=== PATIENT | female | born 1970 | race American Indian/Alaskan Native ===

== ENCOUNTER 2016-09-13 09:34 | Inpatient (IN) | payer MEDICAID ==
[2016-09-13 09:36] VITALS: BMI 32.5
--- NOTE | 2016-09-13 10:35 | ED PDOC ---
Arrival/HPI - General Chief Complaint: Back Pain Time Seen by Provider: 09/13/16 09:58 Historian: Patient - History of Present Illness Narrative History of Present Illness (Text): 09/13/16 10:32 Patient c/o pain in th eleft side of the upper back, radiating to the left arm. Patient minh he has this pain intermittently for 1 week. Patient sts she went to [facility] days ago, blood work was done, but patient walked out because " visit takes too long". Patient sts she called her PMD 2 days ago, spoke with front office coordinator who instructed her to get evaluated in [facility] [place] ED. Patient minh pain came back at 4 am that prompted her ED visit. Patient denies chest pain /SOB. Past Medical History - Provider Review Nursing Documentation Reviewed: Yes - Past History Past History: No Previous - Infectious Disease Hx of Infectious Diseases: None - Tetanus Immunization Tetanus Immunization: Unknown - Cardiac Hx Cardiac Disorders: Yes Hx Hypertension: Yes Other/Comment: CARDIAC STENT INSERTION-2006 - Pulmonary Hx Respiratory Disorders: Yes Hx Asthma: Yes Hx Bronchitis: No Hx Chronic Obstructive Pulmonary Disease (COPD): No Hx Emphysema: No Hx Pneumonia: No Hx Respiratory Aspiration: No Hx Respiratory Tract Infection: No Hx Sleep Apnea: No Hx Tuberculosis: No - Neurological Hx Neurological Disorder: No Hx Alzheimer's Disease: No HX Cerebrovascular Accident: No Hx Dementia: No Hx Dizziness: No Hx Meningitis: No Hx Migraine: No Hx Parkinson's Disease: No Hx Seizures: No Hx Transient Ischemic Attacks (TIA): No - HEENT Hx HEENT Disorder: No Hx Blind: No Hx Cataracts: No Hx Deafness: No Hx Difficulty Chewing: No Hx Epistaxis: No Hx Glaucoma: No Hx Macular Degeneration: No - Renal Hx Renal Disorder: No Hx Kidney Stones: No Hx Neurogenic Bladder: No Hx Pyelonephritis: No Hx Renal Cancer: No Hx Renal Failure: No - Endocrine/Metabolic Hx Endocrine Disorders: Yes Hx Adrenal Cancer: No Hx Diabetes Insipidus: No Hx Diabetes Mellitus Type 1: Yes Hx Diabetes Mellitus Type 2: Yes Hx Hyperthyroidism: No Hx Hypothyroidism: No Hx Systemic Lupus Erythematosus: No - Hematological/Oncological Hx Blood Disorders: No Hx AIDS: No Hx Anemia: No Hx Cancer: No Hx Chemotherapy: No Hx Cirrhosis: No Hx Hemophilia: No Hx Hepatitis A: No Hx Hepatitis B: No Hx Hepatitis C: No Hx Metastasis: No Hx Shingles: No Hx Sickle Cell Disease: No Hx Unexplained Bleeding: No - Integumentary Hx Dermatological Disorder: No Hx Basal Cell Carcinoma: No Hx Eczema: No Hx Melanoma: No Hx Psoriasis: No Hx Squamous Cell Carcinoma: No - Musculoskeletal/Rheumatological Hx Musculoskeletal Disorders: No Hx Arthritis: Yes (KNEE) Hx Falls: No - Gastrointestinal Hx Gastrointestinal Disorders: No (bm since beginning of february) Hx Crohn's Disease: Yes Hx Diarrhea: Yes - Genitourinary/Gynecological Hx Genitourinary Disorders: No (Lmp 2 yrs ago) - Psychiatric Hx Psychophysiologic Disorder: No Hx Depression: No Hx Emotional Abuse: No Hx Physical Abuse: No Hx Substance Use: No - Past Surgical History Past Surgical History: Non-Contributing - Surgical History Hx Coronary Stent: Yes (x1) - Anesthesia Hx Anesthesia: Yes Hx Anesthesia Reactions: No Hx Malignant Hyperthermia: No - Suicidal Assessment Feels Threatened In Home Enviroment: No Family/Social History Family/Social History: Unknown Family HX Smoking Status: Never Smoked Hx Alcohol Use: Yes (social) Frequency of alcohol use: Socially Hx Substance Use: No Hx Substance Use Treatment: No Allergies/Home Meds Allergies/Adverse Reactions: Allergies whole milk Adverse Reaction (Severe, Uncoded 09/13/16 15:34) DIARRHEA drinks only canned milk. Home Medications: Home Meds Medication Instructions Recorded Confirmed Insulin Glargine,Hum.rec.anlog 60 unit SC 03/07/12 09/13/16 [Lantus] Hydrochlorothiazide 12.5 mg PO DAILY 09/16/12 09/13/16 Salmeterol Xinafoate [Serevent 0.046 mg IH DAILY 09/16/12 09/13/16 Diskus] GlipiZIDE [Glucotrol] 1 tab PO DAILY 09/22/13 09/13/16 Omeprazole [Prilosec] 1 tab PO DAILY 09/22/13 09/13/16 Mesalamine [Pentasa] 500 mg PO BID 03/26/14 09/13/16 Fluticasone Propionate [Flonase 9.9 ml NS DAILY 09/13/16 09/13/16 Allergy Relief] Insulin Lispro [humALOG] 40 unit SC 09/13/16 09/13/16 MetFORMIN [glucoPHAGE] 1,000 mg PO DAILY 09/13/16 09/13/16 Review of Systems - Physician Review All systems were reviewed & negative as marked: Yes - Review of Systems Musculoskeletal: Back Pain (upper back pain, radiating to the left arm) Physical Exam Vital Signs Temp Pulse Resp BP Pulse Ox 09/13/16 13:14 89 18 128/78 100 09/13/16 12:24 79 18 123/71 100 09/13/16 11:11 88 18 125/75 100 09/13/16 09:36 98.2 F 85 16 128/81 99 Pain Distress: None Mental Status: Positive for: Alert and Oriented X 3 - Systems Exam Head: Present: Atraumatic, Normocephalic Pupils: Present: PERRL Extroacular Muscles: Present: EOMI Conjunctiva: Present: Normal Mouth: Present: Moist Mucous Membranes Neck: Present: Normal Range of Motion. No: MIDLINE TENDERNESS, Paraspinal Tenderness Respiratory/Chest: Present: Clear to Auscultation, Good Air Exchange. No: Respiratory Distress, Accessory Muscle Use Cardiovascular: Present: Regular Rate and Rhythm, Normal S1, S2 Abdomen: Present: Normal Bowel Sounds. No: Tenderness, Distention Back: Present: Normal Inspection, Paraspinal Tenderness (left upper). No: Midline Tenderness Upper Extremity: Present: Neurovascularly Intact, Capillary Refill < 2s. No: Tenderness, Swelling, Erythema, Temperature Abnormalties Lower Extremity: Present: Normal Inspection, NORMAL PULSES, Normal ROM, Neurovascularly Intact. No: CALF TENDERNESS, Erythema, Temperature Abnormalties Neurological: Present: Speech Normal, Motor Func Grossly Intact, Normal Sensory Function Skin: Present: Warm, Normal Color. No: Rashes Psychiatric: Present: Alert, Oriented x 3 Medical Decision Making - Lab Interpretations Narrative Lab Interpretation (Text): 09/13/16 17:59 Patient has positive Troponin. Nitro paste and ASA po ordered. Case was d/w pt' s PMD who accepted patient to Telemetry for admission. Called for consult to . Lab Results: 09/13/16 10:20 09/13/16 10:20 Lab Results 09/13/16 11:40: Urine Color Yellow, Urine Appearance Clear, Urine pH 6.0, Ur Specific [place] 1.010, Urine Protein Negative, Urine Glucose (UA) Negative, Urine Ketones Negative, Urine Blood Small H, Urine Nitrate Negative, Urine Bilirubin Negative, Urine Urobilinogen 0.2, Ur Leukocyte Esterase Small H, Urine RBC 0 - 2, Urine WBC 1 - 3, Ur Epithelial Cells 1 - 3, Urine Bacteria Mod , Urine HCG, Qual Negative 09/13/16 10:20: Sodium 143, Potassium 3.4 L, Chloride 105, Carbon Dioxide 27, Anion Gap 14, BUN 5 L, Creatinine 0.7, Est GFR ( Amer) > 60, Est GFR (Non -Af Amer) > 60, Random Glucose 57 L, Calcium 9.5, Magnesium 1.7, Total Bilirubin 0.3, AST 39, ALT 29, Alkaline Phosphatase 118, Lactate Dehydrogenase 523, Total Creatine Kinase 134, Troponin I 0.22 H* D, Total Protein 8.5 H, Albumin 4.2, Globulin 4.3, Albumin/Globulin Ratio 1.0 L 09/13/16 10:20: PT 10.4, INR 0.96, APTT 24.7, D-Dimer, Quantitative 0.53 H 09/13/16 10:20: WBC 8.8 D, RBC 3.88, Hgb 12.5, Hct 36.4, MCV 93.8, MCH 32.2, MCHC 34.3, RDW 12.4, Plt Count 365, MPV 9.0, Gran % 68.5 H, Lymph % (Auto) 24.9 , Price % (Auto) 5.8, Eos % (Auto) 0.7 L, Baso % (Auto) 0.1, Gran # 6.00, Lymph # 2.2, Price # 0.5, Eos # 0.1, Baso # 0.01 - RAD Interpretation Radiology Orders: 09/13/16 10:00 CHEST PORTABLE [RAD] Stat - EKG Interpretation Interpreted by ED Physician: Yes (diffuse ST changes) - Medication Orders Current Medication Orders: Glipizide (Glucotrol) 10 mg PO DAILY [facility] Mesalamine (Pentasa) 500 mg PO BID [facility] Last Admin: 09/13/16 17:29 Dose: 500 mg Metformin HCl (Glucophage) 1,000 mg PO DAILY [facility] Nitrofurantoin Macrocrystals (Macrobid) 100 mg PO Q12 [facility] Nitroglycerin (Nitro-Dur 0.1 Mg/Hr Patch) 1 patch TD DAILY [facility] Last Admin: 09/13/16 17:29 Dose: 1 patch Non-Formulary Medication (Fluticasone Propionate [Flovent Hfa]) 2 puff IH DAILY [facility] Non-Formulary Medication (Salmeterol Xinafoate [Serevent Diskus]) 0.046 mg IH DAILY [facility] Ondansetron HCl (Zofran Inj) 4 mg IVP Q4H PRN PRN Reason: Nausea/Vomiting Pantoprazole Sodium (Protonix Ec Tab) 40 mg PO ACB [facility] Discontinued Medications Aspirin (Ecotrin) 325 mg PO STAT STA Stop: 09/13/16 12:08 Last Admin: 09/13/16 12:47 Dose: 325 mg Nitroglycerin (Nitro-Bid 2% Oint) 1 ea TOP STAT STA Stop: 09/13/16 12:08 Last Admin: 09/13/16 12:47 Dose: 1 ea Pneumococcal Polyvalent Vaccine (Pneumovax 23 Vaccine) 0.5 ml IM .ONCE ONE Stop: 09/13/16 15:52 Potassium Chloride (K-Dur 20 Meq Er Tab) 20 meq PO ONCE ONE Stop: 09/13/16 15:36 Last Admin: 09/13/16 17:30 Dose: 20 meq Disposition/Present on Arrival - Present on Arrival Any Indicators Present on Arrival: No History of DVT/PE: No History of Uncontrolled Diabetes: No Urinary Catheter: No History of Decub. Ulcer: No History Surgical Site Infection Following: None - Disposition Have Diagnosis and Disposition been Completed?: Yes Diagnosis: NSTEMI (non-ST elevated myocardial infarction) Disposition: HOSPITALIZED Disposition Time: 12:40 Patient Plan: Admission Patient Problems: Current Active Problems Problem Status Onset NSTEMI (non-ST elevated myocardial infarction) Acute Condition: SERIOUS
[2016-09-13 11:19] LABS: BASO # 0.01 K/mm3 (0.0-2.0); BASO % 0.1 % (0.0-3.0); EOS # 0.1 (0.0-0.7); EOS % 0.7 % (1.5-5.0); GRAN % 68.5 % (50.0-68.0); HEMOGLOBIN 12.5 gm/dL (12.0-16.0); LYMPH # 2.2 (1.2-3.4); LYMPH % 24.9 % (22.0-35.0); MEAN CELL VOLUME 93.8 fL (80.0-105.0); MEAN CORPUSCULAR HEMOGLOBIN 32.2 pg (25.0-35.0); MEAN CORPUSCULAR HGB CONC 34.3 g/dl (31.0-37.0); MONO # 0.5 (0.1-0.6); MONO % 5.8 % (1.0-6.0); PLATELET COUNT 365 10^3/uL (120.0-450.0); RBC 3.88 10^6/uL (3.5-6.1); RED CELL DISTRIBUTION WIDTH 12.4 % (11.5-14.5); WHITE BLOOD COUNT 8.8 10^3/ul (4.5-11.0)
[2016-09-13 11:29] LABS: ALBUMIN 4.2 g/dL (3.0-4.8); ALT/SGPT 29 U/L (7-56); AST/SGOT 39 U/L (15-39); BLOOD UREA NITROGEN 5 mg/dL (7-21); CALCIUM 9.5 mg/dL (8.4-10.5); GFR AFRICAN-AMERICAN > 60; GFR NON-AFRICAN AMERICAN > 60; MAGNESIUM 1.7 mg/dL (1.7-2.2)
[2016-09-13 11:30] LABS: INR 0.96 (0.93-1.08); PARTIAL THROMBOPLASTIN TIME 24.7 Seconds (23.7-30.8); PROTHROMBIN TIME 10.4 Seconds (9.9-11.8)
[2016-09-13 11:38] LABS: D DIMER 0.53 mg/L FEU (0-0.50)
[2016-09-13 11:52] LABS: URINE BILIRUBIN NEGATIVE (NEGATIVE); URINE BLOOD SMALL (NEGATIVE); URINE GLUCOSE (UA) NEGATIVE (NEGATIVE); URINE LEUKOCYTE ESTERASE SMALL Leu/uL (NEGATIVE); URINE NITRATE NEGATIVE (NEGATIVE); URINE PROTEIN NEGATIVE mg/dL (<30 mg/dL); URINE UROBILINOGEN 0.2 E.U./dL (<1 E.U./dL)
[2016-09-13 12:00] LABS: TROPONIN I 0.22 ng/mL
[2016-09-13] MEDS ORDERED: Aspirin 325 mg EC Tablets PO STA (12:07)
[2016-09-13] MEDS ORDERED: Nitroglycerin 2% Ointment Foilpak UD TOP STA (12:07)
[2016-09-13 12:16] LABS: HCG,QUALITATIVE URINE NEGATIVE (NEGATIVE); URINE APPEARANCE CLEAR (CLEAR); URINE COLOR YELLOW (YELLOW); URINE RBC 0 - 2 /hpf (0-2)
[2016-09-13 12:17] LABS: URINE BACTERIA MOD (NEG)
--- NOTE | 2016-09-13 13:15 | RAD ---
HISTORY: upper back pain, radiating to the left arm COMPARISON: 11/16/2015 FINDINGS: LUNGS: No active pulmonary disease. PLEURA: No significant pleural effusion identified, no pneumothorax apparent. CARDIOVASCULAR: Normal. OSSEOUS STRUCTURES: No significant abnormalities. VISUALIZED UPPER ABDOMEN: Normal. OTHER FINDINGS: None. IMPRESSION: No active disease.
[2016-09-13] MEDS ORDERED: Nitroglycerin 0.1 mg/hr Top Patch TD SCH (15:30)
[2016-09-13] MEDS ORDERED: Potassium Chloride 20 mEq ER Tab PO ONE (15:35)
[2016-09-13] MEDS ORDERED: Pneumococcal 23-Valent Vaccine IM ONE (15:51)
--- NOTE | 2016-09-13 17:28 | CARD ---
APPROVED REPORT EKG Measurement Heart [id number] [place] 180P49 [id number] <Conclusion> Normal sinus rhythm Normal ECG
[2016-09-13] MEDS: Mesalamine ER Cap 500 MG PO SCH (17:29)
[2016-09-13] MEDS ORDERED: Heparin 25,000units in D5W 25,000 UNITS/250 ML BAG IV ONE (21:50)
[2016-09-13 22:22] LABS: BASO # 0.01 K/mm3 (0.0-2.0); BASO % 0.1 % (0.0-3.0); EOS # 0.1 (0.0-0.7); EOS % 1.2 % (1.5-5.0); GRAN # 5.02 (1.4-6.5); GRAN % 55.4 % (50.0-68.0); HEMOGLOBIN 11.8 gm/dL (12.0-16.0); LYMPH # 3.5 (1.2-3.4); LYMPH % 38.9 % (22.0-35.0); MEAN CELL VOLUME 92.8 fL (80.0-105.0); MEAN CORPUSCULAR HEMOGLOBIN 32.5 pg (25.0-35.0); MEAN PLATELET VOLUME 8.5 fl (7.0-11.0); MONO # 0.4 (0.1-0.6); MONO % 4.4 % (1.0-6.0); PLATELET COUNT 314 10^3/uL (120.0-450.0); RBC 3.63 10^6/uL (3.5-6.1); RED CELL DISTRIBUTION WIDTH 12.5 % (11.5-14.5); WHITE BLOOD COUNT 9.1 10^3/ul (4.5-11.0)
[2016-09-13 22:27] LABS: INR 0.99 (0.93-1.08); PARTIAL THROMBOPLASTIN TIME 23.3 Seconds (23.7-30.8); PROTHROMBIN TIME 10.7 Seconds (9.9-11.8)
--- NOTE | 2016-09-14 03:23 | HP ---
HISTORY OF PRESENT ILLNESS: I was called in to see the patient in the emergency room. I know her very well from the office for many years. She is a 46-year-old -[place] female who complains of left sided upper back pain radiating to the left arm. She had this on and off for about a week. She was at [facility] 4 days ago for this, but blood work was done, she did not get the results, I never got the results, it took too long, so she left. I sent her to the emergency room. PAST MEDICAL HISTORY: Hypertension, cardiac stents in 2006, diabetes, asthma, COPD, arthritis of the knee, GERD, Crohn's disease, diarrhea, she has one coronary stent in place. FAMILY HISTORY: Hypertension. SOCIAL HISTORY: She never smoked. She socially drinks. No substance abuse. ALLERGIES: HOME MILL GIVES HER ADVERSE REACTION. MEDICATIONS: She takes Welchol, insulin, Flovent, Serevent, Glucotrol, Glucophage, Prilosec, Pentasa, occasional oxycodone, I do not know where she gets it from because I did not prescribe it. REVIEW OF SYSTEMS: No vision changes, no hearing changes, no sore throat. She has upper back pain in the left, radiating to the left arm. No shortness of breath. No abdominal pain. No nausea, vomiting, constipation or diarrhea at this time. Extremities have good range of motion. Skin is intact. No sweating. No dizziness. No palpitations. PHYSICAL EXAMINATION: VITAL SIGNS: She has 98.2 temperature, 85 pulse, 128/81 blood pressure, 16 respiratory rate, and 99% O2 saturation on room air. HEENT: Head is atraumatic, normocephalic. Extraocular muscles are intact. Pupils are equal and reactive to light and accommodation. NECK: Supple. No JVD. HEART: Regular rate. LUNGS: Decreased breath sounds. Clear to auscultation. ABDOMEN: Soft and nontender. Positive bowel sounds. No guarding. No rebound. No CVA tenderness. BACK: No back pain. No tenderness to palpation. EXTREMITIES: No edema. She has good range of motion of all 4 extremities. NEUROLOGIC: She is alert and oriented x3. Cranial nerves II through XII grossly intact. Normal sensation. Normal speech. SKIN: Warm and dry. LYMPHATICS: Thyroid is midline, no palpable lymphadenopathy. She has multiple tests. Chest x-ray with no active disease. LABORATORY DATA: She has an 8.8 white count, 12.5 hemoglobin, 36.4 hematocrit, 365 platelets. INR 0.96. D-dimer is 0.63, little bit elevated. Potassium is low at 3.4, I will give her some potassium. BUN 5, creatinine 0.7, GFR is greater than 60, sugar is 67, calcium is 9.5, magnesium 1.7. Total bilirubin is 0.3, AST is 39, ALT is 29, alkaline phosphatase 118. Troponin was elevated at 0.22. Total protein is 8.5, albumin is 4.2. Urine is negative for and moderate bacteria, a little bit of UTI, I will give her an antibiotics for that. PLAN: She is given a consult with Dr. Carrillo, field service poultry technician. She will have her aspirin and her regular mediations back. Give her some the potassium, antibiotics. I will check her labs tomorrow, put her on a low sodium diabetic diet. We will check her troponin and hopefully she will be okay. We will see if she gets elevated troponin and NSTEMI. Elder Pinedo DO
--- NOTE | 2016-09-14 03:38 | CP.PCM.PN ---
Subjective - Date & Time of Evaluation Date of Evaluation: 09/14/16 Time of Evaluation: 03:38 (Seen earlier.) - Subjective Subjective: Patient was seen because she had headache. Head ache is frontal, mild, has no other complaints. No chest pain, sob, palpitation. States that she is having a heart attack. Medical record was reviewed. This 46 year old woman was admitted with left sided upper back pain radiating to left arm. Has PMH of HTN, CAD,Stent, arthritis,DM,GERD,Crohn's disease. Objective - Vital Signs/Intake and Output Vital Signs (last 24 hours): Temp Pulse Resp BP Pulse Ox 98.6 F 79 20 103/69 100 09/14/16 00:00 09/14/16 02:00 09/14/16 00:00 09/14/16 00:00 09/13/16 13:14 - Medications Medications: Current Medications Acetaminophen (Tylenol 325mg Tab) 650 mg PO Q4 PRN PRN Reason: Headache Aspirin (Ecotrin) 81 mg PO DAILY [facility] Clopidogrel Bisulfate (Plavix) 75 mg PO DAILY [facility] Glipizide (Glucotrol) 10 mg PO DAILY [facility] Mesalamine (Pentasa) 500 mg PO BID [facility] Last Admin: 09/13/16 17:29 Dose: 500 mg Metformin HCl (Glucophage) 1,000 mg PO DAILY [facility] Metoprolol Tartrate (Lopressor) 25 mg PO BID [facility] Last Admin: 09/13/16 22:29 Dose: 25 mg Nitrofurantoin Macrocrystals (Macrobid) 100 mg PO Q12 [facility] Last Admin: 09/13/16 22:30 Dose: 100 mg Nitroglycerin (Nitro-Dur 0.1 Mg/Hr Patch) 1 patch TD DAILY [facility] Last Admin: 09/13/16 17:29 Dose: 1 patch Non-Formulary Medication (Fluticasone Propionate [Flovent Hfa]) 2 puff IH DAILY [facility] Non-Formulary Medication (Salmeterol Xinafoate [Serevent Diskus]) 0.046 mg IH DAILY [facility] Ondansetron HCl (Zofran Inj) 4 mg IVP Q4H PRN PRN Reason: Nausea/Vomiting Pantoprazole Sodium (Protonix Ec Tab) 40 mg PO ACB [facility] - Labs Labs: 09/13/16 22:05 PT 10.7 Seconds (9.9-11.8) 09/13/16 22:05 INR 0.99 (0.93-1.08) 09/13/16 22:05 APTT 23.3 Seconds (23.7-30.8) L 09/13/16 22:05 - Constitutional Appears: No Acute Distress - Head Exam Head Exam: ATRAUMATIC, NORMAL INSPECTION, NORMOCEPHALIC - Eye Exam Eye Exam: Normal appearance - ENT Exam ENT Exam: Normal External Ear Exam - Neck Exam Neck Exam: Normal Inspection - Respiratory Exam Respiratory Exam: NORMAL BREATHING PATTERN - Cardiovascular Exam Cardiovascular Exam: REGULAR RHYTHM, +S1 (Normal), +S2 (Normal.). absent: JVD - GI/Abdominal Exam GI & Abdominal Exam: Soft - Rectal Exam Rectal Exam: Deferred - Exam Additional comments: Deferred. - Extremities Exam Extremities Exam: Normal Inspection - Back Exam Back Exam: NORMAL INSPECTION - Neurological Exam Neurological Exam: Alert, Oriented x3 - Psychiatric Exam Psychiatric exam: Normal Affect, Normal Mood - Skin Skin Exam: Normal Color Assessment and Plan - Assessment and Plan (Free Text) Assessment: Headache 2* to nirtroglycerin. NSTEMI. HTN. CAD. Hx Coronary stent placement. Hx Crohn's disease. GERD. Plan: Tylenol 650 mg po stat. Discussed with . Placed a call to . See orders. EKG stat x 2--> No acute changes. NSR. Troponin -trending up.
[2016-09-14 04:31] LABS: ALB/GLOB RATIO 0.9 (1.1-1.8); ALBUMIN 3.6 g/dL (3.0-4.8); ALT/SGPT 26 U/L (7-56); AST/SGOT 41 U/L (15-39); BLOOD UREA NITROGEN 6 mg/dL (7-21); GFR AFRICAN-AMERICAN > 60; GFR NON-AFRICAN AMERICAN > 60
[2016-09-14 04:36] LABS: BASO # 0.01 K/mm3 (0.0-2.0); BASO % 0.1 % (0.0-3.0); EOS # 0.1 (0.0-0.7); EOS % 1.4 % (1.5-5.0); GRAN # 4.39 (1.4-6.5); GRAN % 49.6 % (50.0-68.0); HEMOGLOBIN 11.5 gm/dL (12.0-16.0); LYMPH % 44.7 % (22.0-35.0); MEAN CORPUSCULAR HEMOGLOBIN 32.1 pg (25.0-35.0); MEAN CORPUSCULAR HGB CONC 34.5 g/dl (31.0-37.0); MEAN PLATELET VOLUME 8.9 fl (7.0-11.0); MONO # 0.4 (0.1-0.6); MONO % 4.2 % (1.0-6.0); PLATELET COUNT 336 10^3/uL (120.0-450.0); RBC 3.58 10^6/uL (3.5-6.1); RED CELL DISTRIBUTION WIDTH 12.6 % (11.5-14.5); WHITE BLOOD COUNT 8.9 10^3/ul (4.5-11.0)
[2016-09-14 06:54] VITALS: O2SAT 96
[2016-09-14] MEDS ORDERED: Pantoprazole 40 mg EC Tab PO SCH (07:30)
[2016-09-14] MEDS ORDERED: Iodixanol 320 MG/ML 100 ML BOTTLE IV ONE (08:00)
[2016-09-14] MEDS ORDERED: Lidocaine 2% Inj (20ml) ONE (09:05)
[2016-09-14] MEDS ORDERED: Iodixanol 320 MG/ML 200 ML BOTTLE IV ONE (09:06)
[2016-09-14] MEDS ORDERED: Midazolam 2 MG/2 ML VIAL ONE ×2 (09:06→09:33)
[2016-09-14] MEDS ORDERED: OMEPRAZOLE PO SCH (10:00)
[2016-09-14] MEDS ORDERED: METFORMIN HYDROCHLORIDE PO SCH (10:00)
[2016-09-14] MEDS: SALMETEROL IH SCH (10:30)
[2016-09-14] MEDS: FLUTICASONE PROPIONATE IH SCH (10:30)
[2016-09-14] MEDS ORDERED: Sodium Chloride 0.9% 1,000 ML IV SCH (10:45)
--- NOTE | 2016-09-14 11:06 | CARD ---
APPROVED REPORT EKG Measurement Heart [id number] [place] 192P68 [id number] <Conclusion> Normal sinus rhythm Low voltage QRS Cannot rule out Anterior infarct, age undetermined Abnormal ECG
--- NOTE | 2016-09-14 11:10 | CARD ---
APPROVED REPORT EKG Measurement Heart [id number] [place] 188P67 [id number] <Conclusion> Normal sinus rhythm Low voltage QRS Septal infarct, age undetermined Abnormal ECG
--- NOTE | 2016-09-14 11:40 | PN ---
SUBJECTIVE: I saw Ita this morning resting comfortably in bed. She slept fairly well. She is going to go for catheterization this morning with the business planning director Dr. Carrillo. She is currently on Ecotrin, Flonase, Glucophage, Glucotrol, Lopressor, Macrobid, Nitro-Dur patch, Pentasa, Plavix, potassium, Serevent, Tylenol, and Zofran. She is here for a NSTEMI. She has UTI. She has diabetes and CAD with the stents in the past. PHYSICAL EXAMINATION: GENERAL: Currently no chest pain, no abdominal pain, and no shortness of breath. She is smiling. She is laughing. She is comfortable in bed. VITAL SIGNS: Temperature of 98, pulse of 79, blood pressure of 115/75, respiratory rate of 20, and 96% O2 saturation on room air. HEENT: Head is atraumatic and normocephalic. Throat is moist. NECK: Supple. HEART: Regular rate. LUNGS: Decreased breath sounds. Lungs are clear to auscultation. ABDOMEN: Soft. EXTREMITIES: No edema. LABORATORY DATA: She has a white count of 8.9, hemoglobin of 11.5, and hematocrit of 33.3, with platelets of 336. She is on heparin and her PTT is 39.9. She has sodium of 138, potassium of 3.4, she has low potassium and we are replacing the potassium. BUN is 6, creatinine is 0.8, GFR is greater than 60, sugar is 72, calcium is 9, AST is 41, ALT is 26, and alkaline phosphatase is 96. Troponins are 0.6, 053, 0.35 and 0.22, they are all elevated. Total protein is 7.4. Urine with moderate bacteria. IMPRESSION AND PLAN: She is seen by Cardiology. They are going to do a catheterization this morning to open up some arteries. Hopefully, she will do very well and she is here for Abw-YA-iakmukd elevation myocardial infarction, urinary tract infection, diabetes, coronary artery disease, and low potassium. We will check her labs. Elder Pinedo DO
[2016-09-14] MEDS ORDERED: Iohexol 350mgl/ml 50 ML ONE (11:46)
[2016-09-14] MEDS ORDERED: Nitroglycerin 50mg in D5W 50 MG/250 ML BOTTLE IV ONE (11:46)
[2016-09-14] MEDS: Mesalamine ER Cap 500 MG PO SCH ×2 (11:56→17:14)
--- NOTE | 2016-09-14 13:06 | CON ---
DATE: 09/13/2016 HISTORY OF PRESENT ILLNESS: The patient is a 46-year-old woman who presents with upper back and radiation to left arm . She apparently was seen at [facility] several days ago. The patient's cardiac risk factors includes hypertension, diabetes mellitus and a strong family history for CAD. She denies previous cardiac history. SOCIAL HISTORY: Denies smoking. REVIEW OF SYSTEMS: The 14-point review of systems was free of edema and there is no dyspnea. PHYSICAL EXAMINATION: VITAL SIGNS: Blood pressure 115/75, heart rate in the 80s. NECK: Negative JVD. CARDIOPULMONARY: Heart with S1 and S2. LUNGS: Without rales. EXTREMITIES: Without edema. LABORATORY DATA: White count is 11 and his hemoglobin is 12.5. Chemistries, BUN and creatinine unremarkable. Troponin is 0.22. EKG reveals normal sinus rhythm with nonspecific ST-T changes. IMPRESSION: 1. Rzk-TJ-esosdli elevation myocardial infarction. 2. Coronary artery disease. 3. Diabetes mellitus. 4. Hypertension. PLAN: Given these findings, we will start the patient on aspirin, Plavix and beta blockers as well as heparin. We will arrange for cardiac catheterization in the morning. Kahlil Carrillo MD
--- NOTE | 2016-09-14 14:00 | CARD ---
APPROVED REPORT EKG Measurement Heart [id number] [place] 192P52 [id number] <Conclusion> Normal sinus rhythm Nonspecific inferior T changes Abnormal ECG
--- NOTE | 2016-09-14 16:28 | CARDCATH ---
PROCEDURE DATE: 09/14/2016 PERFORMING PHYSICIAN: Kahlil Carrillo MD HISTORY: The patient is a 46-year-old woman who presents with a non-STEMI. The patient has had previous PTCA in the past and suffers from diabetes mellitus, hypertension, and hypercholesterolemia. PROCEDURE: Left heart catheterization with coronary aortography and left ventriculogram followed by percutaneous transluminal coronary angioplasty and stent of the circumflex artery. The right femoral artery was cannulated with a 6-Malay sheath. There were no complications. FINDINGS: On catheterization revealed a left ventricle that contracted normally. Estimated ejection fraction is 50-55%. Her coronary anatomy revealed a right dominant circulation. The RCA was visualized and found to be free of significant disease. Left main artery was unremarkable. The LAD and diagonal vessels revealed diffuse atherosclerosis without critical lesions. There is a patent stent in the midportion. The distal part of the LAD revealed a 50-60% stenosis. The circumflex artery was a large vessel and revealed a 99% stenosis in the proximal portion. The patient was started on intravenous Angiomax. Under fluoroscopic guide, the guiding catheter was placed in the ostium of the left main. An 0.014 ATW wire was used to cross the lesion. A 2.5 balloon was utilized to pre-dilate the lesion. A 3.5 x 9 mm drug-eluting stent was placed and deployed at 14 atmospheres of pressure. Repeat coronary aortography revealed an excellent result with no residual stenosis and REGINA-3 flow. The patient tolerated the procedure well. Angio-Seal was used to close the femoral artery site. SUMMARY: In summary, the procedure was successful for PTCA and stent of a 99% proximal circumflex artery. Cardiac catheterization reveals the new lesion in the circumflex artery as well as a patent stent in the mid LAD. The distal portion of the LAD revealed a 50-60% stenosis. LV function was preserved. Given these findings, the patient will need to remain on aspirin indefinitely and Plavix for at least a year and undergo a strict cardiac risk reduction program. Kahlil Carrillo MD
[2016-09-14] MEDS ORDERED: Iohexol 350 MG/100 ML VIAL ONE (17:54)
[2016-09-15 00:45] VITALS: TEMP 98.4
[2016-09-15 06:00] VITALS: RESP 20
[2016-09-15 07:44] LABS: BASO # 0.01 K/mm3 (0.0-2.0); BASO % 0.2 % (0.0-3.0); EOS # 0.1 (0.0-0.7); EOS % 1.8 % (1.5-5.0); GRAN % 56.5 % (50.0-68.0); HEMOGLOBIN 11.6 gm/dL (12.0-16.0); LYMPH # 2.1 (1.2-3.4); LYMPH % 36.6 % (22.0-35.0); MEAN CORPUSCULAR HEMOGLOBIN 31.8 pg (25.0-35.0); MEAN CORPUSCULAR HGB CONC 33.8 g/dl (31.0-37.0); MONO # 0.3 (0.1-0.6); MONO % 4.9 % (1.0-6.0); PLATELET COUNT 312 10^3/uL (120.0-450.0); RBC 3.65 10^6/uL (3.5-6.1); RED CELL DISTRIBUTION WIDTH 12.5 % (11.5-14.5); WHITE BLOOD COUNT 5.7 10^3/ul (4.5-11.0)
[2016-09-15 07:59] LABS: ALB/GLOB RATIO 0.9 (1.1-1.8); ALBUMIN 3.6 g/dL (3.0-4.8); ALT/SGPT 23 U/L (7-56); AST/SGOT 28 U/L (15-39); BLOOD UREA NITROGEN 11 mg/dL (7-21); CALCIUM 8.8 mg/dL (8.4-10.5); GFR AFRICAN-AMERICAN > 60; GFR NON-AFRICAN AMERICAN > 60
--- NOTE | 2016-09-15 09:40 | CT ---
PROCEDURE: CT Chest with contrast (Pulmonary Angiogram) HISTORY: chest pain, d-dimer elevated COMPARISON: None available. TECHNIQUE: Axial computed tomography images were obtained of the chest in the pulmonary arterial phase of enhancement. Coronal and sagittal reformatted images were created and reviewed. Intravenous contrast dose: 100 cc of Omnipaque 300 Radiation dose: Total exam DLP = 796 mGy-cm. This CT exam was performed using one or more of the following dose reduction techniques: Automated exposure control, adjustment of the mA and/or kV according to patient size, and/or use of iterative reconstruction technique. FINDINGS: PULMONARY ARTERIES: Unremarkable. No pulmonary embolism. AORTA: No acute findings. No thoracic aortic aneurysm. LUNGS: Unremarkable. No nodule, mass or pulmonary consolidation. PLEURAL SPACES: Unremarkable. No effusion or pneuomothorax. HEART: Unremarkable. No cardiomegaly. No significant pericardial effusion. LYMPH NODES: No lymphadenopathy. BONES, CHEST WALL: Unremarkable. No fracture or destructive lesion OTHER FINDINGS: Unremarkable. IMPRESSION: Unremarkable CT pulmonary angiogram. No pulmonary embolus.
[2016-09-15] MEDS: FLUTICASONE PROPIONATE IH SCH (09:55)
[2016-09-15] MEDS: SALMETEROL IH SCH (09:56)
[2016-09-15] MEDS: Mesalamine ER Cap 500 MG PO SCH (09:56)
[2016-09-15 09:58] VITALS: BP 111/65; PULSE 98
--- NOTE | 2016-09-15 12:03 | CARD ---
APPROVED REPORT EKG Measurement Heart [id number] [place] 188P61 [id number] <Conclusion> Normal sinus rhythm Normal ECG
--- NOTE | 2016-09-15 13:02 | PN ---
DATE: 09/15/2016 SUBJECTIVE: The patient is chest pain free. PHYSICAL EXAMINATION VITAL SIGNS: Blood pressure is 121/83, the heart rate is in the 80s. NECK: Negative JVD. CARDIOPULMONARY: S1 and S2. ABDOMEN: Text. EXTREMITIES: Without edema. The right groin site is stable. LABORATORY DATA: The hemoglobin is 11.6. Chemistries; glucose is 235. IMPRESSION: 1. Stable post non-STEMI. 2. Status post percutaneous transluminal coronary angioplasty and stent of a 99% circumflex artery with a drug-eluting stent. 3. Diabetes mellitus. 4. Hypercholesterolemia. PLAN: Given these findings, the patient is stable for discharge. I have discussed with the patient about the need to continue Plavix for at least one year. She will need an extensive cardiac risk reduction program. We will sign her up for cardiac rehab. Kahlil Carrillo MD
--- NOTE | 2016-09-16 07:20 | PN ---
DATE: 09/15/2016 SUBJECTIVE: I saw Ita resting comfortably in bed. She is feeling well. No complaints this morning. She had a cath yesterday with a stent placement and also a NSTEMI, UTI, she is diabetic, and low potassium. No chest pain. No shortness of breath. No abdominal pain at this time. PHYSICAL EXAMINATION VITAL SIGNS: Temperature 98.4, pulse 88, blood pressure 121/82, and respiratory rate 20. HEENT: Atraumatic, normocephalic. HEART: Regular rate. LUNGS: Clear to auscultation. ABDOMEN: Soft. EXTREMITIES: Trace edema, left and right is okay. MEDICATIONS: She is currently on Ecotrin, fluticasone, Glucophage, Glucotrol, Lipitor, Lopressor, Macrobid, Pentasa, Plavix, Serevent, Tylenol, Zofran. LABORATORY DATA: She has a 5.7 white count, 11.6 hemoglobin, 34.3 hematocrit with a 312 platelets. Sodium 136, potassium 4.2, BUN 11, creatinine 0.8, , sugar is 250, calcium is 8.8, total bilirubin is 0.7, AST is 28, ALT is 23, alkaline phosphatase total protein is 7.5. Urine had moderate bacteria. ASSESSMENT AND PLAN: She is on antibiotics. She has to tighten up her diabetes. I will discuss with cardiology about discharging her today. Hopefully, she will follow good, low-salt, healthy, low cholesterol diet. She is taking medications. She was here for non-ST elevation myocardial infarction, urinary tract infection, diabetes, coronary artery disease, and low potassium. Elder Pinedo DO [facility]ITALCheryl
== END 2016-09-15 13:42 | disposition home or self-care (01) | DRG 853 ==
LOC: ED 09:34 → ERH 12:43 → 2RNO 14:55 → 2RSO 09-14 10:26
PROVIDERS: ADMIT Family Medicine; ATTEND Family Medicine
PROC: 027034Z Dilation of Coronary Artery, One Artery with Drug-eluting Intraluminal Device, Percutaneous Approach (ICD-10-PCS; principal; 2016-09-14)
PROC: 4A023N7 Measurement of Cardiac Sampling and Pressure, Left Heart, Percutaneous Approach (ICD-10-PCS; 2016-09-14)
PROC: B3101ZZ Fluoroscopy of Thoracic Aorta using Low Osmolar Contrast (ICD-10-PCS; 2016-09-14)
PROC: B2151ZZ Fluoroscopy of Left Heart using Low Osmolar Contrast (ICD-10-PCS; 2016-09-14)
PROC: B2111ZZ Fluoroscopy of Multiple Coronary Arteries using Low Osmolar Contrast (ICD-10-PCS; 2016-09-14)
DX: I21.4 Non-ST elevation (NSTEMI) myocardial infarction (principal); N39.0 Urinary tract infection, site not specified; J44.9 Chronic obstructive pulmonary disease, unspecified; E87.6 Hypokalemia; I25.10 Atherosclerotic heart disease of native coronary artery without angina pectoris; I10 Essential (primary) hypertension; K50.90 Crohn's disease, unspecified, without complications; E10.9 Type 1 diabetes mellitus without complications; K21.9 Gastro-esophageal reflux disease without esophagitis; M17.9 Osteoarthritis of knee, unspecified; E78.00 Pure hypercholesterolemia, unspecified; G44.40 Drug-induced headache, not elsewhere classified, not intractable; T46.3X5A Adverse effect of coronary vasodilators, initial encounter; Z95.5 Presence of coronary angioplasty implant and graft

== ENCOUNTER 2016-09-27 13:01 | Emergency (ER) | payer BC, MEDICAID ==
[2016-09-27 13:06] VITALS: BMI 33.6
[2016-09-27 13:09] VITALS: TEMP 98.7; O2SAT 98
[2016-09-27] MEDS ORDERED: Sodium Chloride 0.9% 500 ML IV STA (13:49)
--- NOTE | 2016-09-27 14:09 | ED PDOC ---
Arrival/HPI - General Chief Complaint: Abdominal Pain Time Seen by Provider: 09/27/16 13:14 Historian: Patient - History of Present Illness Narrative History of Present Illness (Text): 09/27/16 13:43 A 46 year old female, whose past medical history includes hypertension and asthma, presents to the emergency department for evaluation recommended by PMD. Patient reports that 2 weeks ago, she experienced myocardial infarction. She mentions she was feeling fine 5 days ago, but last night patient began experiencing vomiting and diarrhea. She called her PMD and was told to immediately go to the emergency department for evaluation of possible heart attack. Patient mentions that last time she experienced a heart attack she had back pain. Patient denies of any shortness of breath, coughing, fever, chills, abdominal pain, chest pain, urinary symptoms, or any other complaints. Patient recalls eating a sandwich last night but is uncertain if that was what caused the vomiting and diarrhea. PMD: Dr. Pinedo Time/Duration: Other (last night) Symptom Onset: Sudden Symptom Course: Unchanged Activities at Onset: Rest, Light Context: Home Past Medical History - Provider Review Nursing Documentation Reviewed: Yes - Past History Past History: No Previous - Infectious Disease Hx of Infectious Diseases: None - Tetanus Immunization Tetanus Immunization: Unknown - Cardiac Hx Cardiac Disorders: Yes Hx MD: Yes (x1 stent) Hx Hypertension: Yes Other/Comment: CARDIAC STENT INSERTION-2006 - Pulmonary Hx Respiratory Disorders: Yes Hx Asthma: Yes Hx Bronchitis: No Hx Chronic Obstructive Pulmonary Disease (COPD): No Hx Emphysema: No Hx Pneumonia: No Hx Respiratory Aspiration: No Hx Respiratory Tract Infection: No Hx Sleep Apnea: No Hx Tuberculosis: No - Neurological Hx Neurological Disorder: No Hx Alzheimer's Disease: No HX Cerebrovascular Accident: No Hx Dementia: No Hx Dizziness: No Hx Meningitis: No Hx Migraine: No Hx Parkinson's Disease: No Hx Seizures: No Hx Transient Ischemic Attacks (TIA): No - HEENT Hx HEENT Disorder: No Hx Blind: No Hx Cataracts: No Hx Deafness: No Hx Difficulty Chewing: No Hx Epistaxis: No Hx Glaucoma: No Hx Macular Degeneration: No - Renal Hx Renal Disorder: No Hx Kidney Stones: No Hx Neurogenic Bladder: No Hx Pyelonephritis: No Hx Renal Cancer: No Hx Renal Failure: No - Endocrine/Metabolic Hx Endocrine Disorders: Yes Hx Adrenal Cancer: No Hx Diabetes Insipidus: No Hx Diabetes Mellitus Type 1: Yes Hx Diabetes Mellitus Type 2: Yes Hx Hyperthyroidism: No Hx Hypothyroidism: No Hx Systemic Lupus Erythematosus: No - Hematological/Oncological Hx Blood Disorders: No Hx AIDS: No Hx Anemia: No Hx Cancer: No Hx Chemotherapy: No Hx Cirrhosis: No Hx Hemophilia: No Hx Hepatitis A: No Hx Hepatitis B: No Hx Hepatitis C: No Hx Metastasis: No Hx Shingles: No Hx Sickle Cell Disease: No Hx Unexplained Bleeding: No - Integumentary Hx Dermatological Disorder: No Hx Basal Cell Carcinoma: No Hx Eczema: No Hx Melanoma: No Hx Psoriasis: No Hx Squamous Cell Carcinoma: No - Musculoskeletal/Rheumatological Hx Musculoskeletal Disorders: No Hx Arthritis: Yes (KNEE) Hx Falls: No - Gastrointestinal Hx Gastrointestinal Disorders: No (bm since beginning of february) Hx Crohn's Disease: Yes Hx Diarrhea: Yes - Genitourinary/Gynecological Hx Genitourinary Disorders: No (Lmp 2 yrs ago) Other/Comment: takes depo shot - Psychiatric Hx Psychophysiologic Disorder: No Hx Depression: No Hx Emotional Abuse: No Hx Physical Abuse: No Hx Substance Use: No - Past Surgical History Past Surgical History: Non-Contributing - Surgical History Hx Coronary Stent: Yes (x1) - Anesthesia Hx Anesthesia: Yes Hx Anesthesia Reactions: No Hx Malignant Hyperthermia: No - Suicidal Assessment Feels Threatened In Home Enviroment: No Family/Social History - Physician Review Nursing Documentation Reviewed: Yes Family/Social History: No Known Family HX Smoking Status: Never Smoked Hx Alcohol Use: Yes (social) Hx Substance Use: No Hx Substance Use Treatment: No Allergies/Home Meds Allergies/Adverse Reactions: Allergies whole milk Adverse Reaction (Severe, Uncoded 09/27/16 13:06) DIARRHEA drinks only canned milk. Home Medications: Home Meds Medication Instructions Recorded Confirmed Mesalamine [Pentasa] 500 mg PO BID 03/26/14 09/27/16 Metoprolol Tartrate [Lopressor] 25 mg PO BID 09/15/16 09/27/16 Nitrofurantoin Macrocrystals 100 mg PO BID 09/15/16 09/27/16 [Macrobid] Review of Systems - Physician Review All systems were reviewed & negative as marked: Yes - Review of Systems Constitutional: absent: Fevers Respiratory: absent: SOB, Cough Cardiovascular: absent: Chest Pain Gastrointestinal: Diarrhea, Nausea, Vomiting. absent: Abdominal Pain, Stool Changes Physical Exam Vital Signs Reviewed: Yes Vital Signs Temp Pulse Resp BP Pulse Ox 09/27/16 16:31 81 17 107/70 98 09/27/16 13:08 98.7 F 82 19 104/72 98 Temperature: Afebrile Blood Pressure: Normal Pulse: Regular Respiratory Rate: Normal Appearance: Positive for: Well-Appearing Pain Distress: None Mental Status: Positive for: Alert and Oriented X 3 - Systems Exam Head: Present: Atraumatic, Normocephalic Pupils: Present: PERRL Extroacular Muscles: Present: EOMI Conjunctiva: Present: Normal Mouth: Present: Moist Mucous Membranes Neck: Present: Normal Range of Motion Respiratory/Chest: Present: Clear to Auscultation, Good Air Exchange. No: Respiratory Distress, Accessory Muscle Use Cardiovascular: Present: Regular Rate and Rhythm, Normal S1, S2. No: Murmurs Abdomen: Present: Normal Bowel Sounds. No: Tenderness, Distention, Peritoneal Signs Back: Present: Normal Inspection Upper Extremity: Present: Normal Inspection. No: Cyanosis, Edema Lower Extremity: Present: Normal Inspection. No: Edema Neurological: Present: GCS=15, CN II-XII Intact, Speech Normal Skin: Present: Warm, Dry, Normal Color. No: Rashes Psychiatric: Present: Alert, Oriented x 3, Normal Insight, Normal Concentration Medical Decision Making ED Course and Treatment: 09/27/16 13:49 Impression: 46 year old female arrives for evaluation recommended by PMD. Normal physical exam. Differential Diagnosis included but are not limited to: Gastroenteritis Plan: -- EKG -- Labs -- IV Fluids -- Reassess and disposition Prior Visits: Notes and results from previous visits were reviewed. Patient was last seen in the emergency department on 09/13/2016 came into emergency department complaining of pain in the left side of the upper back, radiating to the left arm. Patient was admitted. Progress Notes: EKG: Ordered, reviewed, and independently interpreted the EKG. Rate : 88 BPM Rhythm : NSR Interpretation : No ST-segment elevations or depressions, no T-wave inversions, normal intervals. Comparison : No change from previous EKG in 09/15/2016. 09/27/16 16:31 Patient continues to be asymptomatic. No n/v/d in the ED. I discussed this case with Dr. Elliott Pinedo who agrees patient can follow up with him as an outpatient and be discharged home. - Lab Interpretations Lab Results: 09/27/16 14:20 09/27/16 14:20 Lab Results 09/27/16 14:20: Sodium 138, Potassium 3.6, Chloride 103, Carbon Dioxide 23, Anion Gap 16, BUN 8, Creatinine 0.7, Est GFR ( Amer) > 60, Est GFR (Non- Af Amer) > 60, Random Glucose 193 H, Calcium 9.7, Total Bilirubin 0.7, AST 24, ALT 32, Alkaline Phosphatase 99, Total Protein 8.1, Albumin 4.3, Globulin 3.8, Albumin/Globulin Ratio 1.1, Lipase 103 09/27/16 14:20: WBC 7.3 D, RBC 3.83, Hgb 12.4, Hct 35.8 L, MCV 93.5, MCH 32.4, MCHC 34.6, RDW 12.3, Plt Count 298, MPV 9.3, Gran % 61.7, Lymph % (Auto) 32.9, Henry % (Auto) 4.5, Eos % (Auto) 0.8 L, Baso % (Auto) 0.1, Gran # 4.52, Lymph # 2.4, Henry # 0.3, Eos # 0.1, Baso # 0.01 I have reviewed the lab results: Yes Interpretation: All labs normal - Medication Orders Current Medication Orders: Discontinued Medications Sodium Chloride (Sodium Chloride 0.9%) 500 mls @ 999 mls/hr IV .Q31M STA Stop: 09/27/16 14:19 Last Admin: 09/27/16 14:25 Dose: 999 mls/hr - Scribe Statement The provider has reviewed the documentation as recorded by the Lindy Dye Provider Scribe Attestation: All medical record entries made by the Lindy were at my direction and personally dictated by me. I have reviewed the chart and agree that the record accurately reflects my personal performance of the history, physical exam, medical decision making, and the department course for this patient. I have also personally directed, reviewed, and agree with the discharge instructions and disposition. Disposition/Present on Arrival - Present on Arrival Any Indicators Present on Arrival: No History of DVT/PE: No History of Uncontrolled Diabetes: No Urinary Catheter: No History of Decub. Ulcer: No History Surgical Site Infection Following: None - Disposition Have Diagnosis and Disposition been Completed?: Yes Diagnosis: Gastroenteritis Disposition: HOME/ ROUTINE Disposition Time: 16:31 Patient Plan: Discharge Condition: IMPROVED Discharge Instructions (ExitCare): Gastroenteritis (ED) Additional Instructions: Ms Davis, thank you for letting us take care of you today. Your provider was Dr. Jacome. You were treated for Gastroenteritis. The emergency medical care you received today was directed at your acute symptoms. If you were prescribed any medication, please fill it and take as directed. It may take several days for your symptoms to resolve. Return to the Emergency Department if your symptoms worsen, do not improve, or if you have any other problems. Please contact your doctor or call one of the physicians/clinics you have been referred to that are listed on the Patient Visit Information form that is included in your discharge packet. Bring any paperwork you were given at discharge with you along with any medications you are taking to your follow up visit. Our treatment cannot replace ongoing medical care by a primary care provider (PCP) outside of the emergency department. Thank you for allowing the [facility] team to be part of your care today. If you had an X-Ray or CT scan: A Radiologist will review the ED reading if any change in treatment is needed we will contact you. If you had a blood, urine, or wound culture: It will take several days for the results, if any change in treatment is needed we will contact you. If you had an STI test: It will take 48 hours for the results. Please call after 1 week if you have not heard back. Referrals: Elder Pinedo, [Family Provider] - Follow up with primary Forms: [employer] (Serbian)
[2016-09-27 14:40] LABS: BASO # 0.01 K/mm3 (0.0-2.0); BASO % 0.1 % (0.0-3.0); EOS # 0.1 (0.0-0.7); EOS % 0.8 % (1.5-5.0); GRAN # 4.52 (1.4-6.5); GRAN % 61.7 % (50.0-68.0); HEMOGLOBIN 12.4 g/dL (12.0-16.0); LYMPH # 2.4 (1.2-3.4); LYMPH % 32.9 % (22.0-35.0); MEAN CELL VOLUME 93.5 fl (80.0-105.0); MEAN CORPUSCULAR HEMOGLOBIN 32.4 pg (25.0-35.0); MEAN CORPUSCULAR HGB CONC 34.6 g/dl (31.0-37.0); MEAN PLATELET VOLUME 9.3 fl (7.0-11.0); MONO # 0.3 (0.1-0.6); MONO % 4.5 % (1.0-6.0); PLATELET COUNT 298 10^3/uL (120.0-450.0); RBC 3.83 10^6/uL (3.5-6.1); RED CELL DISTRIBUTION WIDTH 12.3 % (11.5-14.5); WHITE BLOOD COUNT 7.3 10^3/ul (4.5-11.0)
[2016-09-27 14:47] LABS: ALB/GLOB RATIO 1.1 (1.1-1.8); ALBUMIN 4.3 g/dL (3.0-4.8); ALT/SGPT 32 U/L (7-56); AST/SGOT 24 U/L (15-39); BLOOD UREA NITROGEN 8 mg/dL (7-21); CALCIUM 9.7 mg/dL (8.4-10.5); GFR AFRICAN-AMERICAN > 60; GFR NON-AFRICAN AMERICAN > 60; LIPASE 103 U/L (23-300)
[2016-09-27 16:33] VITALS: BP 107/70; PULSE 81; RESP 17
--- NOTE | 2016-09-28 00:20 | CARD ---
APPROVED REPORT EKG Measurement Heart [id number] <Conclusion> Normal sinus rhythm Cannot rule out Anterior infarct, age undetermined Abnormal ECG
== END 2016-09-27 16:31 | disposition home or self-care (01) ==
LOC: ED 13:01
DX: K52.9 Noninfective gastroenteritis and colitis, unspecified (principal); I10 Essential (primary) hypertension
CPT/HCPCS: 80053; 83690; 85025; 93005; 99283; J7040

== ENCOUNTER 2017-03-13 07:13 | Observation (INO) | payer MEDICAID ==
[2017-03-13 07:24] VITALS: BMI 31.6
[2017-03-13 08:22] LABS: BASO # 0.01 K/mm3 (0.0-2.0); BASO % 0.2 % (0.0-3.0); EOS % 0.6 % (1.5-5.0); GRAN # 4.78 (1.4-6.5); GRAN % 71.7 % (50.0-68.0); HEMOGLOBIN 13.8 g/dL (12.0-16.0); LYMPH # 1.4 (1.2-3.4); LYMPH % 20.9 % (22.0-35.0); MEAN CELL VOLUME 96.5 fl (80.0-105.0); MEAN CORPUSCULAR HEMOGLOBIN 32.6 pg (25.0-35.0); MEAN CORPUSCULAR HGB CONC 33.8 g/dl (31.0-37.0); MEAN PLATELET VOLUME 9.5 fl (7.0-11.0); MONO # 0.4 (0.1-0.6); MONO % 6.6 % (1.0-6.0); RBC 4.23 10^6/uL (3.5-6.1); RED CELL DISTRIBUTION WIDTH 12.7 % (11.5-14.5); WHITE BLOOD COUNT 6.7 10^3/ul (4.5-11.0)
--- NOTE | 2017-03-13 08:33 | ED PDOC ---
Arrival/HPI - General Chief Complaint: High Blood Sugar Time Seen by Provider: 03/13/17 08:27 Historian: Patient - History of Present Illness Narrative History of Present Illness (Text): 03/13/17 08:32 46 year old female, whose past medical history includes hypertension and asthma , presents to the emergency department complaining of cough congestion URI symptoms, generalized myalagia, and arthralgia that began 2-3 days ago. Patient' s blood sugar is over 500. Patient denies use of smoking, drinking, any fever, chills, chest pain, shortness of breath, nausea, vomiting, diarrhea, urinary symptoms, headache, dizziness, or any other complaints. PMD: Dr. Pinedo Time/Duration: Other (2-3 days) Symptom Course: Unchanged Activities at Onset: Light Context: Home Past Medical History - Provider Review Nursing Documentation Reviewed: Yes - Past History Past History: No Previous - Infectious Disease Hx of Infectious Diseases: None - Tetanus Immunization Tetanus Immunization: Unknown - Cardiac Hx Cardiac Disorders: Yes Hx MD: Yes (x1 stent) Hx Hypertension: Yes Other/Comment: CARDIAC STENT INSERTION-2007 - Pulmonary Hx Respiratory Disorders: Yes Hx Asthma: Yes Hx Bronchitis: No Hx Chronic Obstructive Pulmonary Disease (COPD): No Hx Emphysema: No Hx Pneumonia: No Hx Respiratory Aspiration: No Hx Respiratory Tract Infection: No Hx Sleep Apnea: No Hx Tuberculosis: No - Neurological Hx Neurological Disorder: No Hx Alzheimer's Disease: No HX Cerebrovascular Accident: No Hx Dementia: No Hx Dizziness: No Hx Meningitis: No Hx Migraine: No Hx Parkinson's Disease: No Hx Seizures: No Hx Transient Ischemic Attacks (TIA): No - HEENT Hx HEENT Disorder: No Hx Blind: No Hx Cataracts: No Hx Deafness: No Hx Difficulty Chewing: No Hx Epistaxis: No Hx Glaucoma: No Hx Macular Degeneration: No - Renal Hx Renal Disorder: No Hx Kidney Stones: No Hx Neurogenic Bladder: No Hx Pyelonephritis: No Hx Renal Cancer: No Hx Renal Failure: No - Endocrine/Metabolic Hx Endocrine Disorders: Yes Hx Adrenal Cancer: No Hx Diabetes Insipidus: No Hx Diabetes Mellitus Type 1: Yes Hx Diabetes Mellitus Type 2: Yes Hx Hyperthyroidism: No Hx Hypothyroidism: No Hx Systemic Lupus Erythematosus: No - Hematological/Oncological Hx Blood Disorders: No Hx AIDS: No Hx Anemia: No Hx Cancer: No Hx Chemotherapy: No Hx Cirrhosis: No Hx Hemophilia: No Hx Hepatitis A: No Hx Hepatitis B: No Hx Hepatitis C: No Hx Metastasis: No Hx Shingles: No Hx Sickle Cell Disease: No Hx Unexplained Bleeding: No - Integumentary Hx Dermatological Disorder: No Hx Basal Cell Carcinoma: No Hx Eczema: No Hx Melanoma: No Hx Psoriasis: No Hx Squamous Cell Carcinoma: No - Musculoskeletal/Rheumatological Hx Musculoskeletal Disorders: No Hx Arthritis: Yes (KNEE) Hx Falls: No - Gastrointestinal Hx Gastrointestinal Disorders: No (bm since beginning of february) Hx Crohn's Disease: Yes Hx Diarrhea: Yes - Genitourinary/Gynecological Hx Genitourinary Disorders: No (Lmp 2 yrs ago) Other/Comment: takes depo shot - Psychiatric Hx Psychophysiologic Disorder: No Hx Depression: No Hx Emotional Abuse: No Hx Physical Abuse: No Hx Substance Use: No - Past Surgical History Past Surgical History: Non-Contributing - Surgical History Hx Coronary Stent: Yes (x1) - Anesthesia Hx Anesthesia: Yes Hx Anesthesia Reactions: No Hx Malignant Hyperthermia: No - Suicidal Assessment Feels Threatened In Home Enviroment: No Family/Social History - Physician Review Nursing Documentation Reviewed: Yes Family/Social History: No Known Family HX Smoking Status: Never Smoked Hx Alcohol Use: Yes (social) Hx Substance Use: No Hx Substance Use Treatment: No Allergies/Home Meds Allergies/Adverse Reactions: Allergies whole milk Adverse Reaction (Severe, Uncoded 09/27/16 13:06) DIARRHEA drinks only canned milk. Home Medications: Home Meds Medication Instructions Recorded Confirmed Metoprolol Tartrate [Lopressor] 25 mg PO BID 09/15/16 03/13/17 Albuterol HFA [Ventolin HFA 90 90 mcg INH PRN PRN 03/13/17 03/13/17 mcg/actuation (8 g)] GlipiZIDE [Glucotrol] 10 mg PO BID 03/13/17 03/13/17 Insulin Detemir [Levemir] 60 units SQ HS 03/13/17 03/13/17 Insulin Lispro [humALOG] 40 units SQ HS 03/13/17 03/13/17 Review of Systems - Physician Review All systems were reviewed & negative as marked: Yes - Review of Systems Constitutional: absent: Fevers, Other (Chills) Respiratory: Cough (Cough congestion ). absent: SOB Cardiovascular: absent: Chest Pain Gastrointestinal: absent: Diarrhea, Nausea, Vomiting Genitourinary Female: absent: Dysuria, Frequency, Hematuria Musculoskeletal: Arthralgias, Myalgias Neurological: absent: Headache, Dizziness Physical Exam Vital Signs Reviewed: Yes Vital Signs Temp Pulse Resp BP Pulse Ox 03/13/17 11:56 98.6 F 100 H 18 124/80 03/13/17 10:00 97.8 F 112 H 18 124/73 97 03/13/17 07:15 97.7 F 113 H 20 123/78 97 Temperature: Afebrile Blood Pressure: Normal Pulse: Tachycardic Respiratory Rate: Normal Appearance: Positive for: Well-Appearing, Non-Toxic, Uncomfortable Pain Distress: None Mental Status: Positive for: Alert and Oriented X 3 Finger Stick Blood Glucose: 500 - Systems Exam Head: Present: Atraumatic, Normocephalic Pupils: Present: PERRL Extroacular Muscles: Present: EOMI Conjunctiva: Present: Normal Mouth: Present: Moist Mucous Membranes Neck: Present: Normal Range of Motion Respiratory/Chest: Present: Clear to Auscultation, Good Air Exchange. No: Respiratory Distress, Accessory Muscle Use Cardiovascular: Present: Normal S1, S2, Tachycardic. No: Murmurs Abdomen: Present: Normal Bowel Sounds. No: Tenderness, Distention, Peritoneal Signs Back: Present: Normal Inspection Upper Extremity: Present: Normal Inspection. No: Cyanosis, Edema Lower Extremity: Present: Normal Inspection. No: Edema Neurological: Present: GCS=15, CN II-XII Intact, Speech Normal Skin: Present: Warm, Dry, Normal Color. No: Rashes Psychiatric: Present: Alert, Oriented x 3, Normal Insight, Normal Concentration Medical Decision Making ED Course and Treatment: 03/13/17 08:32 Impression: 46 year old female presents complaining cough congestion URI symptoms, generalized myalgia, and arthralgia for the past 2-3 days. Plan: -- EKG -- Labs -- Chest X-ray -- HumuLIN R -- IV Fluids -- POC Urine Test -- Influenza A B -- Reassess and disposition Progress Notes: 03/13/17 12:49 EKG shows sinus tachycardia rate approximately 115 with poor R-wave progression and no acute ST or T-wave changes - Lab Interpretations Lab Results: 03/13/17 08:00 03/13/17 08:00 Lab Results 03/13/17 08:50: Influenza Typ A,B (EIA) Negative for flu a/b 03/13/17 08:00: Sodium 130 L, Potassium 4.3, Chloride 97 L, Carbon Dioxide 17 L , Anion Gap 21 H, BUN 13, Creatinine 0.8, Est GFR ( Amer) > 60, Est GFR ( Non-Af Amer) > 60, Random Glucose 884 H* D, Calcium 9.7, Total Bilirubin 0.8, AST 36, ALT 28, Alkaline Phosphatase 187 H, Lactate Dehydrogenase 442, Total Creatine Kinase 75, Troponin I 0.01 D, Total Protein 8.5 H, Albumin 4.5, Globulin 4.0, Albumin/Globulin Ratio 1.1 03/13/17 08:00: WBC 6.7, RBC 4.23, Hgb 13.8, Hct 40.8, MCV 96.5 D, MCH 32.6, MCHC 33.8, RDW 12.7, Plt Count 376, MPV 9.5, Gran % 71.7 H, Lymph % (Auto) 20.9 L, Mason % (Auto) 6.6 H, Eos % (Auto) 0.6 L, Baso % (Auto) 0.2, Gran # 4.78, Lymph # 1.4, Mason # 0.4, Eos # 0.0, Baso # 0.01 I have reviewed the lab results: Yes - RAD Interpretation Radiology Orders: 03/13/17 08:33 CHEST PORTABLE [RAD] Stat Chest 1 view shows no infiltrate effusion or cardiomegaly Draw Off Worker: ED Physician - EKG Interpretation Interpreted by ED Physician: Yes Type: 12 lead EKG - Medication Orders Current Medication Orders: Albuterol Sulfate (Albuterol 0.083% Inhal Liliana (2.5 Mg/3 Ml) Ud) 2.5 mg INH Q6H PRN PRN Reason: Cough Aspirin (Ecotrin) 81 mg PO DAILY YADI Atorvastatin Calcium (Lipitor) 40 mg PO DIN YADI Clopidogrel Bisulfate (Plavix) 75 mg PO DAILY YADI Fluticasone Propionate (Flonase) 1 actuation NS DAILY YADI Sodium Chloride (Sodium Chloride 0.45%) 1,000 mls @ 150 mls/hr IV .Q6H40M YADI Last Admin: 03/13/17 14:51 Dose: 150 mls/hr eMAR Start Stop Document 03/13/17 14:51 VS (Rec: 03/13/17 14:51 VS [id number]) Intravenous Solution Start Date 03/13/17 Start Time 14:51 End Date 03/13/17 Insulin Detemir (Levemir) 40 unit SC HS YADI Insulin Human Lispro (Humalog Low) 0 units SC ACHS YADI PRN Reason: Protocol Insulin Human Lispro (Humalog) 12 units SC AC YADI Metoprolol Tartrate (Lopressor) 25 mg PO BID YADI Tramadol HCl (Ultram) 50 mg PO TID PRN PRN Reason: Pain, moderate (4-7) Last Admin: 03/13/17 11:54 Dose: 50 mg [facility] Pain Assessment Document 03/13/17 11:54 VS (Rec: 03/13/17 11:56 VS [id number]) Pain Reassessment Is this a pain reassessment? No Presence of Pain Presence of Pain Yes Pain Scale Used Pain Scale Used Numeric Location Left, Right or Bilateral Left Pain Location Body Site Knee Description Description Constant Intensity of Pain at present 10 Pain Behavior Moaning Alleviating Factors/Management Medication Techniques Alleviating Factors Medication Re-Assess: [facility] Pain Assessment Document 03/13/17 12:54 VS (Rec: 03/13/17 14:53 VS [id number]) Pain Reassessment Is this a pain reassessment? Yes Presence of Pain Presence of Pain No Pain Scale Used Pain Scale Used Numeric Discontinued Medications Albuterol Sulfate (Albuterol 0.083% Inhal Liliana (2.5 Mg/3 Ml) Ud) 2.5 mg INH Q6H PRN PRN Reason: Cough Sodium Chloride (Sodium Chloride 0.9%) 1,000 mls @ 500 mls/hr IV ONCE ONE Stop: 03/13/17 10:33 Last Admin: 03/13/17 08:41 Dose: 500 mls/hr eMAR Start Stop Document 03/13/17 08:41 LA (Rec: 03/13/17 08:41 LA [id number]) Intravenous Solution Start Date 03/13/17 Start Time 08:41 Sodium Chloride (Sodium Chloride 0.9%) 1,000 mls @ 500 mls/hr IV ONCE ONE Stop: 03/13/17 11:10 Last Admin: 03/13/17 09:18 Dose: 500 mls/hr eMAR Start Stop Document 03/13/17 09:18 REGENERATOR OPERATOR (Rec: 03/13/17 09:18 REGENERATOR OPERATOR [id number]) Intravenous Solution Start Date 03/13/17 Start Time 09:18 End Date 03/13/17 End time 10:00 Total Infusion Time 42 Sodium Chloride (Sodium Chloride 0.45%) 1,000 mls @ 100 mls/hr IV .Q10H [facility] Last Admin: 03/13/17 11:56 Dose: 100 mls/hr eMAR Start Stop Document 03/13/17 11:56 VS (Rec: 03/13/17 11:56 VS [id number]) Intravenous Solution Start Date 03/13/17 Start Time 11:56 End Date 03/13/17 Insulin Human Regular (Humulin R) 10 units IV ONCE STA Stop: 03/13/17 08:35 Last Admin: 03/13/17 08:48 Dose: 10 units eMAR Start Stop Document 03/13/17 08:48 LA (Rec: 03/13/17 08:49 LA [id number]) Intravenous Solution Start Date 03/13/17 Start Time 08:49 MAR Blood Glucose Document 03/13/17 08:48 LA (Rec: 03/13/17 08:49 LA [id number]) Blood Glucose Finger Stick Blood Glucose (70-120) 500 Insulin Human Regular (Humulin R High) 0 units SC ACHS [facility] PRN Reason: Protocol Last Admin: 03/13/17 11:53 Dose: 12 units MAR Blood Glucose Document 03/13/17 11:53 VS (Rec: 03/13/17 11:54 VS [id number]) Blood Glucose Finger Stick Blood Glucose (70-120) 400 Subcutaneous Administrations Document 03/13/17 11:53 VS (Rec: 03/13/17 11:54 VS [id number]) Injection Site MAR Injection Site Right Abdomen Charges for Administration # of Subcutaneous Administrations 1 Metformin HCl (Glucophage) 1,000 mg PO BID [facility] Last Admin: 03/13/17 11:54 Dose: 1,000 mg - Scribe Statement The provider has reviewed the documentation as recorded by the Lindy Jalloh Provider Scribe Attestation: All medical record entries made by the Scribe were at my direction and personally dictated by me. I have reviewed the chart and agree that the record accurately reflects my personal performance of the history, physical exam, medical decision making, and the department course for this patient. I have also personally directed, reviewed, and agree with the discharge instructions and disposition. Disposition/Present on Arrival - Present on Arrival Any Indicators Present on Arrival: No History of DVT/PE: No History of Uncontrolled Diabetes: No Urinary Catheter: No History of Decub. Ulcer: No History Surgical Site Infection Following: None - Disposition Have Diagnosis and Disposition been Completed?: Yes Diagnosis: Diabetic ketoacidosis Disposition: HOSPITALIZED Disposition Time: 12:50 Patient Plan: Admission Patient Problems: Current Active Problems Problem Status Onset Diabetic ketoacidosis Acute Condition: IMPROVED
[2017-03-13] MEDS ORDERED: Insulin Regular 1 UNITS/0.01 ML ML IV STA (08:34)
[2017-03-13] MEDS ORDERED: Sodium Chloride 0.9% 1,000 ML IV ONE ×2 (08:34→09:11)
[2017-03-13 08:47] LABS: ALB/GLOB RATIO 1.1 (1.1-1.8); ALBUMIN 4.5 g/dL (3.0-4.8); ALT/SGPT 28 U/L (7-56); AST/SGOT 36 U/L (14-36); BLOOD UREA NITROGEN 13 mg/dL (7-21); CALCIUM 9.7 mg/dL (8.4-10.5); GFR AFRICAN-AMERICAN > 60; GFR NON-AFRICAN AMERICAN > 60
[2017-03-13 10:13] LABS: TROPONIN I 0.01 ng/mL
[2017-03-13] MEDS ORDERED: Albuterol 0.083% Inhal Sol (2.5 mg/3 mL) UD INH PRN ×2 (11:11→13:29)
[2017-03-13] MEDS ORDERED: Sodium Chloride 0.45% 1,000 ML IV SCH (11:15)
[2017-03-13] MEDS ORDERED: Insulin Reg-HIGH-Coverage SC SCH (11:30)
--- NOTE | 2017-03-13 14:04 | RAD ---
HISTORY: cough COMPARISON: 09/13/2016 FINDINGS: LUNGS: No active pulmonary disease. PLEURA: No significant pleural effusion identified, no pneumothorax apparent. CARDIOVASCULAR: Normal. OSSEOUS STRUCTURES: No significant abnormalities. VISUALIZED UPPER ABDOMEN: Normal. OTHER FINDINGS: None. IMPRESSION: No active disease.
[2017-03-13] MEDS: Sodium Chloride 0.45% 1,000 ML IV SCH ×2 (14:51→20:36)
--- NOTE | 2017-03-13 17:25 | CARD ---
APPROVED REPORT EKG Measurement Heart [id number] <Conclusion> Sinus tachycardia Possible Left atrial enlargement Possible Anterior infarct, age undetermined Abnormal ECG
[2017-03-13] MEDS: Insulin Lispro (humaLOG) LOW Coverage SC SCH ×2 (18:31→22:23)
[2017-03-13 18:51] VITALS: RESP 20
[2017-03-13] MEDS: Insulin Lispro 1 UNITS/0.01 ML SC SCH (19:05)
[2017-03-13] MEDS ORDERED: Insulin Detemir 100 units/ml Vial (Levemir) SC SCH (22:00)
--- NOTE | 2017-03-13 22:18 | CON ---
DATE: ENDOCRINOLOGY CONSULT LOCATION: In room 245, telemetry. HISTORY OF PRESENT ILLNESS: This is a 46-year-old female with known history of type 2 insulin-requiring diabetes, presenting here with generalized body weakness and marked hyperglycemic accelerations and is now being referred for diabetic evaluation and management. PAST MEDICAL HISTORY: As mentioned above, history of type 2 insulin-requiring diabetes on the combination of Levemir given as 60 units subcu at bedtime with Humalog given as 40 units subcu at bedtime only. This is a quite strange dosing regimen. History of hypertension, dyslipidemia, and history of bronchial asthma as noted. FAMILY HISTORY: Positive for diabetes and hypertension. SOCIAL HISTORY: The patient has supportive family. No known substance use. Occasionally some alcohol . REVIEW OF SYSTEMS: As mentioned above. Admits to progressive falls. Admits to some lightheadedness, worse on the day of admission, also admits to generalized body weakness with suboptimal energy level and visual blurring with bifrontal headaches again worse in the left, 2 to 3 days prior to admission. No chest pain or palpitations. Admits to an upper respiratory infection with productive cough and pleuritic chest pain. Her oral intake has been variable with occasional nausea and dyspepsia and vague upper abdominal pains, also admits to marked polyuria, nocturia, polydipsia. PHYSICAL EXAMINATION: GENERAL: This is an average-built female, in no apparent distress. VITAL SIGNS: Blood pressure of 140/82; pulse of 70 beats per minute, regular; temperature 98; and respirations 20. Height is 5 feet 5 inches and weight is 190 pounds. HEENT: Head is normocephalic. Eyes are anicteric with pink conjunctivae. Funduscopy not possible at this time. Ears, nose, and throat otherwise normal. NECK: Supple. Thyroid gland is normal in size. No carotid bruits or any cervical adenopathy. CARDIOPULMONARY: Some adynamic precordium. S1 and S2 are rapid and regular. LUNGS: Clear to auscultation. ABDOMEN: Flat, soft with positive bowel sounds. EXTREMITIES: No peripheral edema. Pulses are +2 bilaterally. LABORATORIES: Her chemistries showed a BUN of 15, sodium 130, potassium 4.3, chloride 97, CO2 of 17, glucose 884, and creatinine 0.8. Her glucose levels have ranged from 400 to 463 and over 500 mg/dL. ASSESSMENT: This is a 46-year-old female with uncontrolled and decompensated type 2 insulin-requiring diabetes, presenting here with hyperosmolar hyperglycemic state and mild ketoacidosis and also clinical evidence of dehydration with previous hyponatremia as noted. Later today, increased osmotic diuresis thereof. PLAN OF MANAGEMENT: As discussed with the staff, we will start her right away on vigorous IV hydration and increased her normal saline to 150 mL/hour as ordered. We will also switch over to a more physiologic basal and bolus insulin drug combination with Levemir to be given as 40 units subcu at bedtime daily to start tonight. We also add Humalog given as 12 units subcu t.i.d. before meals to start at dinner today as ordered. We will modify the coverage scale to obviate hypoglycemia and detailed orders have been given. We will obtain serial chemistries and supplement accordingly as needed. We will also initiate diabetic educations and diet instruction to include healthy and food choices and weight loss efforts as noted. We will also reemphasize the needs for a more physiologic basal and bolus insulin drug combination as ordered once daily insulin dose only given at night due to the strange regimen. We will follow with you. Annie العلي MD
[2017-03-14] MEDS ORDERED: Oxycodone/Acetaminophen 5/325 mg Tab PO STA ×2 (00:43→00:48)
--- NOTE | 2017-03-14 01:09 | HP ---
HISTORY OF PRESENT ILLNESS: I have known Ita for a very long time. She comes to my office. She had not been feeling well, so sent to the emergency room. She is a 46-year-old female who presents to the emergency room coughing, congestion, upper respiratory symptoms, malaise, arthralgias for about 2-3 days. Blood sugars have been over 500 at home. No smoking. No drinking. No fever. No nausea, vomiting. She has a history of hypertension, asthma, diabetes, CAD. She has a cardiac stent x1, asthma, type 2 diabetes: She had left knee arthroscopic surgery, decreased bowel movements, Crohn disease, diarrhea. Last menstrual period was 2 years ago. Takes Depo shots. She had cardiac stent x1. No known family history. Never smoked. Social drinker. No drugs. Whole milk, has an adverse reaction with diarrhea. She takes metoprolol, albuterol, Glucotrol, Levemir and Humalog. REVIEW OF SYSTEMS: No fevers or chills. She looks toxic. There is a cough and congestion. No chest pain or palpitations. No bowel movements at this time. No diarrhea, nausea, vomiting, constipation, diarrhea. No problems urinating. No arthralgias, myalgias. No headache or dizziness. No change in vision or hearing. PHYSICAL EXAMINATION: VITAL SIGNS: She has a 98.6 temperature, 113 pulse, 20 respiratory rate, 124/80 blood pressure, 97% O2 sat on room air. GENERAL: She is uncomfortable, looks very tired and weak. Alert and oriented x3. HEENT: Head is atraumatic, normocephalic. Extraocular muscles are intact. Pupils equal, reactive to light and accommodation. Throat is moist. NECK: Supple. Thyroid midline. No palpable appreciable lymphadenopathy. HEART: Regular rate. Normal S1, S2. LUNGS: Clear to auscultation with fair exchange. No wheezes or rhonchi. No rales. ABDOMEN: Soft, nontender. Positive bowel sounds. No guarding, no rebound or CVA tenderness. EXTREMITIES: No edema of the extremities. GCS is 15. NEUROLOGIC: Cranial nerves II through XII grossly intact. Normal speech, lethargic. SKIN: Warm and dry. No apparent rashes or ulcers. NEUROLOGIC: Alert and oriented x3. Check upper respiratory infection symptoms, she had multiple tests. LABORATORY DATA: Fingerstick blood sugar was 500, but it was as high as 884. She has a 6.7 white count, 13.8 hemoglobin, 40.8 hematocrit with 376 platelets. 130 sodium, was low, 4.3 potassium, BUN 30, creatinine 0.8, GFR is greater than 60. Highest blood sugar was 884, then it was 500, then it was 463, then 400, now it is 259. Calcium is 9.7, total bili is 0.8, AST is 36, ALT is 28, alk phos is 187. Lactate dehydrogenase is 442. Total creatinine kinase 75. Troponin I is 0.01, total protein is 8.5, albumin is 4.5, globulin is 4. She had influenza, which was negative. She has a chest x-ray which showed no active disease. EKG, sinus tachycardia, possible left atrial enlargement. Possible anterior infarct, age undetermined. ASSESSMENT AND PLAN: She will have a consult with Endocrinology, Dr. العلي. She was put on IV fluids, albuterol, aspirin, Flonase, insulin, Levemir, Lipitor, Lopressor. She is on observation right now. I am hoping that possible she improves. We are going to possibly discharge her tomorrow home in the afternoon if she improves. She is in diabetic ketoacidosis, very uncomfortable. Hopefully, she will improve with extraordinary high blood pressure 84. Elder Pinedo DO MTDD
[2017-03-14] MEDS: Sodium Chloride 0.45% 1,000 ML IV SCH ×2 (03:05→09:47)
[2017-03-14 06:22] LABS: HEMOGLOBIN 11.9 g/dL (12.0-16.0); MEAN CORPUSCULAR HEMOGLOBIN 31.6 pg (25.0-35.0); MEAN CORPUSCULAR HGB CONC 34.1 g/dl (31.0-37.0); MEAN PLATELET VOLUME 8.8 fl (7.0-11.0); RBC 3.76 10^6/uL (3.5-6.1); RED CELL DISTRIBUTION WIDTH 12.5 % (11.5-14.5); WHITE BLOOD COUNT 6.6 10^3/ul (4.5-11.0)
[2017-03-14 06:23] VITALS: BP 112/75; PULSE 82; TEMP 98.5; O2SAT 99
[2017-03-14 06:37] LABS: ALBUMIN 3.6 g/dL (3.0-4.8); ALT/SGPT 28 U/L (7-56); AST/SGOT 26 U/L (14-36); BLOOD UREA NITROGEN 6 mg/dL (7-21); CALCIUM 8.4 mg/dL (8.4-10.5); GFR AFRICAN-AMERICAN > 60; GFR NON-AFRICAN AMERICAN > 60; HDL CHOLESTEROL 31 mg/dL (29-60)
[2017-03-14 06:44] LABS: LDL CHOLESTEROL 93 mg/dL (0-129)
[2017-03-14 06:46] LABS: MEAN CELL VOLUME 92.8 fl (80.0-105.0)
[2017-03-14] MEDS: Insulin Lispro (humaLOG) LOW Coverage SC SCH ×2 (08:30→11:23)
[2017-03-14] MEDS: Insulin Lispro 1 UNITS/0.01 ML SC SCH ×2 (08:30→11:22)
[2017-03-14] MEDS ORDERED: Fluticasone Nasal 50 mcg/Spray NS SCH (10:00)
--- NOTE | 2017-03-14 19:50 | PN ---
DATE: Room 245. This is a 46-year-old female with recent uncontrolled type 2 insulin-requiring diabetes presenting here with hyperosmolar hyperglycemic state and mild ketosis and is now being followed closely for metabolic management. Her glycemic levels are fluctuating but improved and the latest glucose levels have ranged from 167-242 mg/dL. Her latest chemistry shows a BUN of 6, sodium 137, potassium 3.9, chloride 107, CO2 20, glucose 167, and creatinine 0.7. Her hemoglobin A1c is 12.2% which is quite elevated indicative of suboptimal metabolic control of her diabetic condition even prior to this admission. At this time, we will recommend a modified basal and bolus insulin drug combination and increase the Humalog to 14 units subcu t.i.d. before meals to start today as ordered. We will also continue the Levemir given as 40 units subcu at bedtime daily as given. We will titrate incrementally as indicated to optimize metabolic control. We will obtain serial chemistries and supplement accordingly needed. We will also continue the same low-dose correction scale using Humalog insulin as ordered. She will follow with her medical doctor for outpatient diabetic and medical followup. Annie العلي MD
--- NOTE | 2017-03-15 03:54 | DS ---
SUBJECTIVE: She is doing much better this morning. She slept well. She still achy and painful. I put her on some Toradol this morning and hopefully this afternoon after lunch and she eats well, we will discharge her. We will see if it is okay with Endocrinology also. MEDICATIONS: She is currently on IV fluids, albuterol, Ecotrin, Flonase 12 units subcu a.c. and at bedtime coverage, 10 units IV insulin as needed, Levemir 40 at night time, Lipitor, Lopressor, Plavix, Toradol and Ultram. PHYSICAL EXAMINATION GENERAL: She is talking. She is comfortable, little bit of pain. No specific area, all over. VITAL SIGNS: She has a 98.5 temperature, 82 pulse, 112/75 blood pressure, 20 respiratory rate, 99% sat on room air. HEENT: Head is atraumatic, normocephalic. HEART: Regular rate. LUNGS: Decreased breath sounds but clear. ABDOMEN: Soft. Positive bowel sounds. EXTREMITIES: No edema. LABORATORY DATA: She examines well. She had a blood test. She has a 6.6 white count, 11.9 hemoglobin, 34.9 hematocrit with 310 platelets. Sodium 137, potassium 3.9, BUN is 6, creatinine is 0.7. GFR is greater than 60, sugar is 167, calcium is 8.4, total bili is 0.7, AST is 26, ALT is 28, alk phos 90, total protein 7.2, albumin is 3.6. TSH is 1.61. Negative for flu. She is here for DKA, elevated blood sugars 584 and now it is down to 167. She is doing much better and I am hoping to discharge her after lunch. I will talk with Endocrinology. She is on the same medications. I will follow up in the office in 1 week. Elder Pinedo DO MTDD
[2017-03-15 13:54] LABS: C-PEPTIDE 0.93 ng/mL (0.80-3.85)
== END 2017-03-14 15:20 | disposition home or self-care (01) ==
LOC: ED 07:13 → ERH 09:23 → 2A 11:29
PROVIDERS: ADMIT Family Medicine; ATTEND Family Medicine
DX: E11.10 Type 2 diabetes mellitus with ketoacidosis without coma (principal); E11.00 Type 2 diabetes mellitus with hyperosmolarity without nonketotic hyperglycemic-hyperosmolar coma (NKHHC); Z79.4 Long term (current) use of insulin; I25.10 Atherosclerotic heart disease of native coronary artery without angina pectoris; I10 Essential (primary) hypertension; E86.0 Dehydration; E78.5 Hyperlipidemia, unspecified; J45.909 Unspecified asthma, uncomplicated; Z95.5 Presence of coronary angioplasty implant and graft
CPT/HCPCS: 36415; 71045; 80053; 80061; 82550; 82948; 83036; 83615; 84443; 84484; 84681; 85025; 85027; 87804; 93005; 96360; 99285; G0378; J1885; J7030; J7040

== ENCOUNTER 2017-03-20 14:13 | Observation (INO) | payer MEDICAID ==
[2017-03-20 14:13] VITALS: BMI 31.6
[2017-03-20] MEDS ORDERED: HYDROmorphone 1 mg/ml ISec IVP STA (15:08)
[2017-03-20] MEDS ORDERED: Sodium Chloride 0.9% 1,000 ML IV STA ×2 (15:08→17:18)
--- NOTE | 2017-03-20 15:09 | ED PDOC ---
Arrival/HPI - General Chief Complaint: Abdominal Pain Time Seen by Provider: 03/20/17 14:16 Historian: Patient - History of Present Illness Narrative History of Present Illness (Text): you were treated in the ED today for history of heart disease with stent, hypertension, asthma, diabetes, crohn's disease, and now with abdomen pain, reflux, and nausea which improves with dilouded but otherwise without any new foods/vomiting/headache/dizziness/difficulty breathing/chest pain/numbness/ tingling/loss of limb function/pain with urination. 03/20/17 15:43 Time/Duration: Other (2 days) Symptom Onset: Gradual Symptom Course: Unchanged, Intermittent Quality: Aching Severity Level: 4 Activities at Onset: Rest Context: Sitting Past Medical History - Provider Review Nursing Documentation Reviewed: Yes - Travel History Have you recently traveled outside [place] w/in the past 3 mons?: No - Past History Past History: No Previous - Infectious Disease Hx of Infectious Diseases: None - Tetanus Immunization Tetanus Immunization: Unknown - Reproductive Menopause: No - Cardiac Hx Cardiac Disorders: Yes Hx AK: Yes (x1 stent) Hx Hypertension: Yes Other/Comment: CARDIAC STENT INSERTION-2007 - Pulmonary Hx Respiratory Disorders: Yes Hx Asthma: Yes Hx Bronchitis: No Hx Chronic Obstructive Pulmonary Disease (COPD): No Hx Emphysema: No Hx Pneumonia: No Hx Respiratory Aspiration: No Hx Respiratory Tract Infection: No Hx Sleep Apnea: No Hx Tuberculosis: No - Neurological Hx Neurological Disorder: No Hx Alzheimer's Disease: No HX Cerebrovascular Accident: No Hx Dementia: No Hx Dizziness: No Hx Meningitis: No Hx Migraine: No Hx Parkinson's Disease: No Hx Seizures: No Hx Transient Ischemic Attacks (TIA): No - HEENT Hx HEENT Disorder: No Hx Blind: No Hx Cataracts: No Hx Deafness: No Hx Difficulty Chewing: No Hx Epistaxis: No Hx Glaucoma: No Hx Macular Degeneration: No - Renal Hx Renal Disorder: No Hx Kidney Stones: No Hx Neurogenic Bladder: No Hx Pyelonephritis: No Hx Renal Cancer: No Hx Renal Failure: No - Endocrine/Metabolic Hx Endocrine Disorders: Yes Hx Adrenal Cancer: No Hx Diabetes Insipidus: No Hx Diabetes Mellitus Type 1: Yes Hx Diabetes Mellitus Type 2: Yes Hx Hyperthyroidism: No Hx Hypothyroidism: No Hx Systemic Lupus Erythematosus: No - Hematological/Oncological Hx Blood Disorders: No Hx AIDS: No Hx Anemia: No Hx Cancer: No Hx Chemotherapy: No Hx Cirrhosis: No Hx Hemophilia: No Hx Hepatitis A: No Hx Hepatitis B: No Hx Hepatitis C: No Hx Metastasis: No Hx Shingles: No Hx Sickle Cell Disease: No Hx Unexplained Bleeding: No - Integumentary Hx Dermatological Disorder: No Hx Basal Cell Carcinoma: No Hx Eczema: No Hx Melanoma: No Hx Psoriasis: No Hx Squamous Cell Carcinoma: No - Musculoskeletal/Rheumatological Hx Musculoskeletal Disorders: No Hx Arthritis: Yes (KNEE) Hx Falls: No - Gastrointestinal Hx Gastrointestinal Disorders: No (bm since beginning of february) Hx Crohn's Disease: Yes Hx Diarrhea: Yes - Genitourinary/Gynecological Hx Genitourinary Disorders: No (Lmp 2 yrs ago) Other/Comment: takes depo shot - Psychiatric Hx Psychophysiologic Disorder: No Hx Depression: No Hx Emotional Abuse: No Hx Physical Abuse: No Hx Substance Use: No - Past Surgical History Past Surgical History: Non-Contributing - Surgical History Hx Coronary Stent: Yes (x1) - Anesthesia Hx Anesthesia: Yes Hx Anesthesia Reactions: No Hx Malignant Hyperthermia: No - Suicidal Assessment Feels Threatened In Home Enviroment: No Family/Social History - Physician Review Nursing Documentation Reviewed: Yes Family/Social History: No Known Family HX Smoking Status: Never Smoked Hx Alcohol Use: Yes (social) Hx Substance Use: No Hx Substance Use Treatment: No Allergies/Home Meds Allergies/Adverse Reactions: Allergies whole milk Adverse Reaction (Severe, Uncoded 03/20/17 14:33) DIARRHEA drinks only canned milk. Home Medications: Home Meds Medication Instructions Recorded Confirmed Metoprolol Tartrate [Lopressor] 25 mg PO BID 09/15/16 03/20/17 Albuterol HFA [Ventolin HFA 90 90 mcg INH PRN PRN 03/13/17 03/20/17 mcg/actuation (8 g)] GlipiZIDE [Glucotrol] 10 mg PO BID 03/13/17 03/20/17 Insulin Detemir [Levemir] 60 units SQ HS 03/13/17 03/20/17 Insulin Lispro [humALOG] 40 units SQ HS 03/13/17 03/20/17 Review of Systems - Review of Systems Constitutional: Normal Eyes: Normal ENT: Normal Respiratory: Normal Cardiovascular: Normal Gastrointestinal: Normal, Abdominal Pain, Nausea Genitourinary Female: Normal Musculoskeletal: Normal Skin: Normal Neurological: Normal Endocrine: Normal Hemo/Lymphatic: Normal Psychiatric: Normal Physical Exam Vital Signs Reviewed: Yes Vital Signs Temp Pulse Resp BP Pulse Ox 03/20/17 17:34 106 H 18 118/71 100 03/20/17 16:13 110 H 18 120/73 100 03/20/17 14:28 98.4 F 116 H 18 119/77 99 Temperature: Afebrile Blood Pressure: Normal Pulse: Tachycardic Respiratory Rate: Normal Appearance: Positive for: Well-Appearing, Non-Toxic, Comfortable Pain Distress: None Mental Status: Positive for: Alert and Oriented X 3 Finger Stick Blood Glucose: 441 - Systems Exam Head: Present: Atraumatic, Normocephalic Pupils: Present: PERRL Extroacular Muscles: Present: EOMI Conjunctiva: Present: Normal Ears: Present: Normal Mouth: Present: Moist Mucous Membranes Pharnyx: Present: Normal Nose (External): Present: Atraumatic Nose (Internal): Present: Normal Inspection Neck: Present: Normal Range of Motion Respiratory/Chest: Present: Clear to Auscultation, Good Air Exchange, Respiratory Distress Cardiovascular: Present: Regular Rate and Rhythm Abdomen: Present: Tenderness, Other (mild abdomen discomfort/tenderness, soft wo rebound or guarding) Back: Present: Normal Inspection Upper Extremity: Present: Normal Inspection Lower Extremity: Present: Normal Inspection Neurological: Present: GCS=15, CN II-XII Intact, Speech Normal, Motor Func Grossly Intact Skin: Present: Warm, Normal Color Psychiatric: Present: Alert, Oriented x 3, Normal Insight, Normal Concentration Medical Decision Making ED Course and Treatment: you were treated in the ED today for history of heart disease with stent, hypertension, asthma, diabetes, crohn's disease, and now with abdomen pain, reflux, and nausea which improves with dilouded but otherwise without any new foods/vomiting/headache/dizziness/difficulty breathing/chest pain/numbness/ tingling/loss of limb function/pain with urination. You were otherwise breathing easily, pink moist lips, smiling and talking easily, good strength/ sensation, alert/oriented, clear lungs, mild abdomen tenderness, no fever temp 98.4, fast heart rate 116_and repeat 106____, stable breathing rate 18, excellent oxygen level 99% room air, stable blood pressure 119/77, you have blood tests no infection count 8, stable blood level hemoglobin 14/platelets 348 , stable chemistry, mildly low bicarbonate 19 which intravenous fluids given, glucose elevated 384 which intravenous fluids given, heart blood test normal, urine test no acute sign of infection, urine test negative, magnesium 1.6 supplemented chest xray no acute and radiology ct abdomen/pelvis signs of gastritis but no acute inflammatory, ECG normal sinus rhythm, dilouded, intravenous fluids, zofran done in the ED without improvement, and had discussion with Dr. Pinedo who stated iv toradol and protonix, npo and admit to med-surg observation. 03/20/17 21:29 - Lab Interpretations Lab Results: 03/20/17 15:55 03/20/17 15:52 Lab Results 03/20/17 17:30: Urine Color Yellow, Urine Appearance Sl cloudy, Urine pH 6.0, Ur Specific [place] 1.015, Urine Protein Negative, Urine Glucose (UA) >=1000, Urine Ketones >=80, Urine Blood Small H, Urine Nitrate Negative, Urine Bilirubin Negative, Urine Urobilinogen 0.2, Ur Leukocyte Esterase Negative, Urine RBC 0 - 2, Urine WBC 0 - 2, Ur Epithelial Cells 1 - 3 03/20/17 15:55: PT 11.7, INR 1.03, APTT 26.6 03/20/17 15:55: WBC 8.6 D, RBC 4.38, Hgb 14.4 D, Hct 40.6, MCV 92.7, MCH 32.9 , MCHC 35.5, RDW 12.4, Plt Count 348, MPV 9.8, Gran % 62.3, Lymph % (Auto) 32.7 , [place] % (Auto) 4.2, Eos % (Auto) 0.7 L, Baso % (Auto) 0.1, Gran # 5.32, Lymph # (Auto) 2.8, [place] # (Auto) 0.4, Eos # (Auto) 0.1, Baso # (Auto) 0.01 03/20/17 15:52: Sodium 133, Potassium 3.8, Chloride 101, Carbon Dioxide 19 L, Anion Gap 17, BUN 9, Creatinine 0.7, Est GFR ( Amer) > 60, Est GFR (Non- Af Amer) > 60, Random Glucose 384 H* D, Calcium 9.6, Magnesium 1.6 L, Total Bilirubin 1.0, AST 17, ALT 28, Alkaline Phosphatase 124, Lactate Dehydrogenase 447, Total Creatine Kinase 87, Troponin I < 0.01, Total Protein 8.3, Albumin 4.3 , Globulin 4.0, Albumin/Globulin Ratio 1.1, Lipase 90 I have reviewed the lab results: Yes - RAD Interpretation Radiology Orders: 03/20/17 15:06 CHEST TWO VIEWS (PA/LAT) [RAD] Stat 03/20/17 17:20 ABD & PELVIS IV CONTRAST ONLY [CT] Stat Tape Stringer: Radiologist - EKG Interpretation Interpreted by ED Physician: Yes (NSR, flipped t waves avr, v1, iii, flattened v2.) Type: 12 lead EKG - Medication Orders Current Medication Orders: Ketorolac Tromethamine (Toradol) 30 mg IVP Q6 YADI Stop: 03/24/17 09:00 Pantoprazole Sodium (Protonix Inj) 40 mg IVP DAILY YADI Discontinued Medications Hydromorphone HCl (Dilaudid) 1 mg IVP STAT STA Stop: 03/20/17 15:09 Last Admin: 03/20/17 16:00 Dose: 1 mg MAR Pain Assessment Document 03/20/17 16:00 OCS (Rec: 03/20/17 16:01 [id number]) Pain Reassessment Is this a pain reassessment? Yes Sleep Is patient sleeping during reassessment? No Presence of Pain Presence of Pain Yes Pain Scale Used Pain Scale Used Numeric Location Pain Location Body Site Generalized Description Description Constant Intensity of Pain at present 10 Aggravating Factors ADL's IVP Administration Document 03/20/17 16:00 OCS (Rec: 03/20/17 16:01 [id number]) Charges for Administration # of IVP Administrations 1 Sodium Chloride (Sodium Chloride 0.9%) 1,000 mls @ 999 mls/hr IV .Q1H1M STA Stop: 03/20/17 16:08 Last Admin: 03/20/17 16:03 Dose: 999 mls/hr eMAR Start Stop Document 03/20/17 16:03 OCS (Rec: 03/20/17 16:03 [id number]) Intravenous Solution Start Date 03/20/17 Start Time 16:03 End Date 03/20/17 End time 17:04 Total Infusion Time 61 Magnesium Sulfate 1 gm/ Sodium (Chloride) 102 mls @ 102 mls/hr IVPB ONCE ONE Stop: 03/20/17 18:17 Last Admin: 03/20/17 18:14 Dose: 102 mls/hr eMAR Start Stop Document 03/20/17 18:14 OCS (Rec: 03/20/17 18:14 [place] [facility] [id number][place] Intravenous Solution Start Date 03/20/17 Start Time 18:14 End Date 03/20/17 End time 19:14 Total Infusion Time 60 Sodium Chloride (Sodium Chloride 0.9%) 1,000 mls @ 999 mls/hr IV .Q1H1M STA Stop: 03/20/17 18:18 Last Admin: 03/20/17 18:15 Dose: 999 mls/hr eMAR Start Stop Document 03/20/17 18:15 OCS (Rec: 03/20/17 18:15 [place] [facility] [id number] Intravenous Solution Start Date 03/20/17 Start Time 18:15 End Date 03/20/17 End time 19:16 Total Infusion Time 61 Ketorolac Tromethamine (Toradol) 15 mg IVP STAT STA Stop: 03/20/17 19:41 Last Admin: 03/20/17 20:08 Dose: 15 mg MAR Pain Assessment Document 03/20/17 20:08 OCS (Rec: 03/20/17 20:08 [id number]) Pain Reassessment Is this a pain reassessment? Yes Sleep Is patient sleeping during reassessment? No Presence of Pain Presence of Pain Yes Pain Scale Used Pain Scale Used Numeric Location Pain Location Body Site Generalized Description Description Constant Intensity of Pain at present 8 Aggravating Factors ADL's IVP Administration Document 03/20/17 20:08 OCS (Rec: 03/20/17 20:08 [id number]) Charges for Administration # of IVP Administrations 1 Ondansetron HCl (Zofran Inj) 4 mg IM STAT STA Stop: 03/20/17 15:44 Last Admin: 03/20/17 16:02 Dose: 4 mg IM Administration Charges Document 03/20/17 16:02 OCS (Rec: 03/20/17 16:02 [id number]) Injection Site MAR Injection Site Left Arm Charges for Administration # of IM Administrations 1 Pantoprazole Sodium (Protonix Inj) 40 mg IVP STAT STA Stop: 01/30/18 15:08 Last Admin: 03/20/17 16:02 Dose: 40 mg IVP Administration Document 03/20/17 16:02 OCS (Rec: 03/20/17 16:02 OCS [facility] [id number]) Charges for Administration # of IVP Administrations 1 Disposition/Present on Arrival - Present on Arrival Any Indicators Present on Arrival: No History of DVT/PE: No History of Uncontrolled Diabetes: No Urinary Catheter: No History of Decub. Ulcer: No History Surgical Site Infection Following: None - Disposition Have Diagnosis and Disposition been Completed?: Yes Diagnosis: Gastritis, Hyperglycemia, Hypomagnesemia Disposition: HOSPITALIZED Disposition Time: 21:30 Patient Plan: Admission Condition: STABLE Referrals: Elder Pinedo DO [Primary Care Provider] - Follow up with primary Forms: SYLLETA (Belizean)
[2017-03-20 16:08] LABS: BASO # 0.01 K/mm3 (0.0-2.0); BASO % 0.1 % (0.0-3.0); EOS # 0.1 (0.0-0.7); EOS % 0.7 % (1.5-5.0); GRAN # 5.32 (1.4-6.5); GRAN % 62.3 % (50.0-68.0); HEMOGLOBIN 14.4 g/dL (12.0-16.0); LYMPH # 2.8 (1.2-3.4); LYMPH % 32.7 % (22.0-35.0); MEAN CELL VOLUME 92.7 fl (80.0-105.0); MEAN CORPUSCULAR HEMOGLOBIN 32.9 pg (25.0-35.0); MEAN CORPUSCULAR HGB CONC 35.5 g/dl (31.0-37.0); MEAN PLATELET VOLUME 9.8 fl (7.0-11.0); MONO # 0.4 (0.1-0.6); MONO % 4.2 % (1.0-6.0); RBC 4.38 10^6/uL (3.5-6.1); RED CELL DISTRIBUTION WIDTH 12.4 % (11.5-14.5); WHITE BLOOD COUNT 8.6 10^3/ul (4.5-11.0)
[2017-03-20 16:13] LABS: INR 1.03 (0.93-1.08); PARTIAL THROMBOPLASTIN TIME 26.6 Seconds (25.1-36.5); PROTHROMBIN TIME 11.7 SECONDS (9.4-12.5)
[2017-03-20 17:00] LABS: TROPONIN I < 0.01 ng/mL
[2017-03-20 17:01] LABS: ALB/GLOB RATIO 1.1 (1.1-1.8); ALBUMIN 4.3 g/dL (3.0-4.8); ALT/SGPT 28 U/L (7-56); AST/SGOT 17 U/L (14-36); BLOOD UREA NITROGEN 9 mg/dL (7-21); CALCIUM 9.6 mg/dL (8.4-10.5); GFR AFRICAN-AMERICAN > 60; GFR NON-AFRICAN AMERICAN > 60; LIPASE 90 U/L (23-300); MAGNESIUM 1.6 mg/dL (1.7-2.2)
[2017-03-20 17:46] LABS: URINE BILIRUBIN NEGATIVE (NEGATIVE); URINE BLOOD SMALL (NEGATIVE); URINE GLUCOSE (UA) >=1000 mg/dL (NEGATIVE); URINE LEUKOCYTE ESTERASE NEGATIVE Leu/uL (NEGATIVE); URINE NITRATE NEGATIVE (NEGATIVE); URINE PROTEIN NEGATIVE mg/dL (<30 mg/dL); URINE UROBILINOGEN 0.2 E.U./dL (<1 E.U./dL)
[2017-03-20 17:49] LABS: URINE APPEARANCE SL CLOUDY (CLEAR); URINE COLOR YELLOW (YELLOW)
[2017-03-20 18:04] LABS: URINE RBC 0 - 2 /hpf (0-2); URINE WBC 0 - 2 /hpf (0-6)
[2017-03-20] MEDS ORDERED: Iohexol 350 MG/100 ML VIAL ONE (18:49)
--- NOTE | 2017-03-20 20:51 | CT ---
EXAM: CT Abdomen and Pelvis With Intravenous Contrast EXAM DATE/TIME: 03/20/2017 5:20 PM CLINICAL HISTORY: The patient age is 46 years old and is female; Pain; Abdominal pain; Acute; Additional info: 46yof, with crohn's, abdomen pain Facility exam id and description: Ct abdpelciv abd pelvis iv contrast only TECHNIQUE: Axial computed tomography images of the abdomen and pelvis with intravenous contrast. All CT scans at this facility use one or more dose reduction techniques, viz.: automated exposure control; ma/kV adjustment per patient size (including targeted exams where dose is matched to indication; i.e. head); or iterative reconstruction technique. Coronal and sagittal reformatted images were created and reviewed. CONTRAST: 100 mL of omni 350 administered intravenously. COMPARISON: No relevant prior studies available. FINDINGS: Lower thorax: Minimal atelectatic changes are identified at the lung bases. ABDOMEN: Liver: No mass. Gallbladder and bile ducts: No calcified stones. No ductal dilation. Pancreas: Normal contour, without acute peripancreatic stranding. Spleen: The lateral segment of the left hepatic lobe extends into the left upper quadrant and is contiguous with the spleen. There is no splenomegaly. Adrenals: No mass. Kidneys and ureters: There is a subcentimeter probable left renal cyst at the lower pole. There is mild irregular contour of the left renal cortex. There is no hydronephrosis bilaterally. Stomach and bowel: There is wall thickening of the distal stomach, suggestive of gastritis. Moderate fecal material is identified within the colon, without definitive wall thickening. There is no evidence of acute inflammatory changes involving the terminal ileum. Evaluation of bowel is limited by the absence of oral contrast. Appendix: The appendix is elongated, without acute inflammatory changes. PELVIS: Bladder: No mass. Reproductive: Within the right ovary, there is a 2.3 x 1.9 cm hypodense probable cyst. ABDOMEN and PELVIS: Intraperitoneal space: No free air. Bones/joints: No acute fracture. Vasculature: No abdominal aortic aneurysm. Lymph nodes: No enlarged lymph nodes. IMPRESSION: 1. There is wall thickening of the distal stomach, suggestive of gastritis. 2. Moderate fecal material is identified within the colon, without definitive wall thickening. There is no evidence of acute inflammatory changes involving the terminal ileum. 3. Within the right ovary, there is a 2.3 x 1.9 cm hypodense probable cyst. This can be further evaluated with ultrasound. 4. Incidental/non-acute findings are described above.
[2017-03-20] MEDS: Sodium Chloride 0.45% 1,000 ML IV SCH (23:30)
--- NOTE | 2017-03-21 03:35 | HP ---
HISTORY OF PRESENT ILLNESS: I saw Ita in the Emergency Room today. I was called down to take a look at her. She comes in with severe abdominal pain. She has a history of having this few times in the past. She is a 46-year-old female with severe abdominal pain, nauseousness, had a history of reflux, Crohn's disease and not feeling well. This was going on for the past 2 or 3 days, could not take any more came to the Emergency Room. PAST MEDICAL HISTORY: She has a past medical history of having a MN in the past, one cardiac stent, asthma, type 2 diabetes, arthritis of the knee, poor bowel habits diarrhea and her Crohn's disease. Last menstrual period was 2 years ago, she takes a Depo shot. She had a coronary stent. FAMILY HISTORY: Hypertension in the family. SOCIAL HISTORY: Never smoked. Occasional alcohol. No drugs. ALLERGIES: SHE HAS ALLERGIES TO WHOLE MILK, GETS DIARRHEA. SHE DRINKS ONLY CAN MILK. MEDICATIONS: She takes metoprolol, Ventolin, Glucotrol, Levemir and Humalog. REVIEW OF SYSTEMS: Upset with pain, uncomfortable in bed. No acute vision or hearing changes. No shortness of breath or cough. No chest pain or palpitations. She has abdominal pain and nauseousness. History of diarrhea. No problems urinating. No back pain. No skin ulcers that she knows about or rashes. Not anxious. Not depressed. No sweating. PHYSICAL EXAMINATION VITAL SIGNS: She has a 98.4 temperature, 116 pulse, 18 respiratory rate, 119/77 blood pressure and 100% O2 sat. GENERAL: She is uncomfortable, a well-appearing, alert and oriented x3. HEENT: Head; atraumatic and normocephalic. Extraocular muscles are intact. Pupils equal, round and reactive light and accommodation. Throat is moist. NECK: Supple. HEART: Regular rate. LUNGS: Decreased breath sounds, but clear to auscultation. ABDOMEN: Soft. Mild tenderness throughout. No guarding or rebound. Decreased bowel sounds. EXTREMITIES: No edema. NEUROLOGIC: GCS is 15. Cranial nerves II-XII grossly intact. Speech is normal. Alert and oriented x3. SKIN: Wand dry. No apparent ulcers or rashes. NODES: Thyroid midline. No appreciable palpable lymphadenopathy. LABORATORY DATA: She had tests done. She had a CT scan of the abdomen and pelvis which showed wall thickening of the distal stomach suggestive of gastritis, moderate fecal material is identified within the colon without definitive wall thickening. There is no evidence of acute inflammatory changes involving the terminal ileum. Within the right ovary, there is a cyst. She had blood tests done. Urine is clear. An 133 sodium, potassium 3.8, BUN 9, creatinine 0.7, GFR is greater than 60, sugar is 384 should be on insulin coverage, calcium is 9.6, magnesium 1.6, total bili is 1, AST 17, ALT is 28 and alk phos is 124. Lactate dehydrogenase is 447. Troponin I is less than 0.01. Total protein is 8.3 and lipase is 90. INR is 1.03. White count is 8.6, hemoglobin is 14.4, hematocrit 40.6 and platelets are 348. She will be admitted under observation status. She will have IV fluids, n.p.o., Toradol for pain and for the gastritis she will have Protonix. She will get some Zofran and insulin coverage. Hopefully, we will be able to feed her tomorrow and get GI to see her and hopefully tomorrow afternoon she will be able to be discharged. She is being admitted for severe abdominal pain and gastritis. Dr. Pinedo dictating on Ita Fails. We will check her labs tomorrow. Thank you very much. Elder Pinedo DO [email or web address]
[2017-03-21 07:53] LABS: HEMOGLOBIN 11.7 g/dL (12.0-16.0); MEAN PLATELET VOLUME 9.8 fl (7.0-11.0); RBC 3.66 10^6/uL (3.5-6.1); RED CELL DISTRIBUTION WIDTH 12.5 % (11.5-14.5); WHITE BLOOD COUNT 5.3 10^3/ul (4.5-11.0)
[2017-03-21 08:21] LABS: ALBUMIN 3.6 g/dL (3.0-4.8); ALT/SGPT 30 U/L (7-56); AST/SGOT 22 U/L (14-36); BLOOD UREA NITROGEN 7 mg/dL (7-21); CALCIUM 8.4 mg/dL (8.4-10.5); GFR AFRICAN-AMERICAN > 60; GFR NON-AFRICAN AMERICAN > 60
[2017-03-21] MEDS ORDERED: Morphine 4 mg/ml ISec IVP PRN (08:30)
[2017-03-21] MEDS: Insulin Reg-HIGH-Coverage SC SCH ×4 (08:46→22:39)
--- NOTE | 2017-03-21 10:19 | RAD ---
HISTORY: 46yoF, hx of cad with reflux COMPARISON: 03/13/2017 TECHNIQUE: Chest PA and lateral FINDINGS: LUNGS: No active pulmonary disease. PLEURA: No significant pleural effusion identified. No pneumothorax apparent. CARDIOVASCULAR: Normal. OSSEOUS STRUCTURES: No significant abnormalities. VISUALIZED UPPER ABDOMEN: Normal. OTHER FINDINGS: None. IMPRESSION: No active disease.
[2017-03-21] MEDS ORDERED: Bisacodyl 5mg EC Tab PO ONE (12:12)
[2017-03-21] MEDS ORDERED: Peg-Electrolyte Oral Soln 4L (Golytely) PO ONE (12:12)
[2017-03-21] MEDS ORDERED: Mineral Oil Enema 135 ml RC ONE (12:20)
--- NOTE | 2017-03-21 13:06 | CARD ---
APPROVED REPORT EKG Measurement Heart [id number] MT [id number] <Conclusion> Normal sinus rhythm Prolonged QT
[2017-03-21] MEDS: Sodium Chloride 0.45% 1,000 ML IV SCH (13:08)
--- NOTE | 2017-03-21 13:49 | CP.PCM.CON ---
<Epifanio Zamora - Last Filed: 03/21/17 13:56> History of Present Illness - History of Present Illness History of Present Illness: PGY5 GI Fellow Consult Note Patient is a 46yo female with PMHx significant for Crohn's disease, CAD s/p PCI with TRUMAN x2, DM, dyslipidemia, osteoarthritis who presented to the ED with abdominal pain. Patient states she suddenly developed diffuse abdominal pain, worst in the LLQ approximately 3 days prior to arrival. She cannot pinpoint any inciting factors and does not note anything that seems to make symptoms better or worse. Does admit to severe constipation with no BM for approximately one week and admits that she has suffered with constipation since childhood, sometimes not passing stool for over 10-14 days. Patient has not tried any medications to improve her condition. Denies any postprandial discomfort, nausea , vomiting, weight loss, rectal bleeding. With regards to her Crohn's disease, patient is nonadherent to therapies and has been lost to follow up for several years. She is unclear on the details of her disease, thus most of the history is obtained from EMR. The patient was first diagnosed with CD on colonoscopy approximately 10 years ago following a bout of severe abdominal pain. She followed with Dr Diaz who treated her initially with 5-ASA derivatives but eventually ramped up therapy to immunomodulators and later multiple TNF-a inhibitors, most recently with Humira in around 2012. The patient lost insurance and was lost to follow up but did present to the ED later on in 2014 with abdominal pain. At that time she had stopped taking all medications to treat symptoms. She admits to intermittent flares with pain but denies any recent steroid therapy or chronic maintenance therapies. Last colonoscopy was upwards of 5 years ago but patient unsure. PMHx: See HPI PSHx: PCI, left knee lateral meniscus FHx: No family history of IBD or GI malignancy Social: Denies tobacco or illicit drug use, occasional/rare EtOH intake Endo: Patient unsure of last intervention - believes colonoscopy in 2012 but does not recall results 12 system ROS performed and negative except where stated above. Past Patient History - Infectious Disease Hx of Infectious Diseases: None - Tetanus Immunizations Tetanus Immunization: Unknown - Past Medical History & Family History Past Medical History?: Yes - Past Social History Smoking Status: Never Smoked - CARDIAC Hx Cardiac Disorders: Yes Hx Hypertension: Yes Other/Comment: CARDIAC STENT INSERTION-2006 - PULMONARY Hx Respiratory Disorders: Yes Hx Asthma: Yes Hx Bronchitis: No Hx Chronic Obstructive Pulmonary Disease (COPD): No Hx Emphysema: No Hx Pneumonia: No Hx Respiratory Aspiration: No Hx Respiratory Tract Infection: No Hx Sleep Apnea: No Hx Tuberculosis: No - NEUROLOGICAL Hx Neurological Disorder: No Hx Alzheimer's Disease: No HX Cerebrovascular Accident: No Hx Dementia: No Hx Dizziness: No Hx Meningitis: No Hx Migraine: No Hx Parkinson's Disease: No Hx Seizures: No Hx Transient Ischemic Attacks (TIA): No - HEENT Hx HEENT Problems: No Hx Blind: No Hx Cataracts: No Hx Deafness: No Hx Difficulty Chewing: No Hx Epistaxis: No Hx Glaucoma: No Hx Macular Degeneration: No - RENAL Hx Chronic Kidney Disease: No Hx Kidney Stones: No Hx Neurogenic Bladder: No Hx Pyelonephritis: No Hx Renal (Kidney) Cancer: No Hx Renal Failure: No - ENDOCRINE/METABOLIC Hx Endocrine Disorders: Yes Hx Adrenal Cancer: No Hx Diabetes Insipidus: No Hx Diabetes Mellitus Type 1: Yes Hx Diabetes Mellitus Type 2: Yes Hx Hyperthyroidism: No Hx Hypothyroidism: No Hx Systemic Lupus Erythematosus: No - HEMATOLOGICAL/ONCOLOGICAL Hx Blood Disorders: No Hx AIDS: No Hx Anemia: No Hx Cancer: No Hx Chemotherapy: No Hx Cirrhosis: No Hx Hemophilia: No Hx Hepatitis A: No Hx Hepatitis B: No Hx Hepatitis C: No Hx Metastesis: No Hx Shingles: No Hx Sickle Cell Disease: No Hx Unexplained Bleeding: No - INTEGUMENTARY Hx Dermatological Problems: No Hx Basil Cell: No Hx Eczema: No Hx Melanoma: No Hx Psoriasis: No Hx Squamous Cell: No - MUSCULOSKELETAL/RHEUMATOLOGICAL Hx Musculoskeletal Disorders: No Hx Arthritis: Yes (KNEE) Hx Falls: No - GASTROINTESTINAL Hx Gastrointestinal Disorders: No (bm since beginning of february) Hx Crohn's Disease: Yes - GENITOURINARY/GYNECOLOGICAL Hx Genitourinary Disorders: No (Lmp 2 yrs ago) Other/Comment: takes depo shot - PSYCHIATRIC Hx Psychophysiologic Disorder: No Hx Depression: No Hx Emotional Abuse: No Hx Physical Abuse: No - SURGICAL HISTORY Hx Surgeries: Yes Hx Coronary Stent: Yes (x1) - ANESTHESIA Hx Anesthesia: Yes Hx Anesthesia Reactions: No Hx Malignant Hyperthermia: No Meds Allergies/Adverse Reactions: Allergies Allergy/AdvReac Type Severity Reaction Status Date / Time whole milk AdvReac Severe DIARRHEA Uncoded 03/20/17 14:33 - Medications Medications: Current Medications Clopidogrel Bisulfate (Plavix) 75 mg PO DAILY [facility] Last Admin: 03/21/17 09:29 Dose: 75 mg Fluticasone Propionate (Flonase) 1 actuation NS DAILY [facility] Sodium Chloride (Sodium Chloride 0.45%) 1,000 mls @ 60 mls/hr IV .[id number] [facility] Last Admin: 03/21/17 13:08 Dose: 60 mls/hr Insulin Human Regular (Humulin R High) 0 units SC ACHS [facility] PRN Reason: Protocol Last Admin: 03/21/17 13:03 Dose: 4 units Ketorolac Tromethamine (Toradol) 30 mg IVP Q6 [facility] Stop: 03/24/17 09:00 Last Admin: 03/21/17 13:04 Dose: 30 mg Metoprolol Tartrate (Lopressor) 25 mg PO BID [facility] Last Admin: 03/21/17 09:33 Dose: 25 mg Morphine Sulfate (Morphine) 4 mg IV Q4H PRN PRN Reason: Pain, severe (8-10) Ondansetron HCl (Zofran Inj) 4 mg IVP Q6H PRN PRN Reason: Nausea/Vomiting Pantoprazole Sodium (Protonix Inj) 40 mg IVP DAILY [facility] Last Admin: 03/21/17 09:34 Dose: 40 mg Polyethylene Glycol (Miralax) 17 gm PO DAILY [facility] Physical Exam - Constitutional Appears: Non-toxic, No Acute Distress - Eye Exam Eye Exam: EOMI, PERRL - ENT Exam ENT Exam: Mucous Membranes Moist - Respiratory Exam Respiratory Exam: Clear to Auscultation Bilateral. absent: Rales, Rhonchi, Wheezes - Cardiovascular Exam Cardiovascular Exam: RRR, +S1, +S2 - GI/Abdominal Exam GI & Abdominal Exam: Normal Bowel Sounds, Soft, Tenderness (RUQ/RLQ/suprapubic) . absent: Distended, Firm, Guarding, Organomegaly, Rebound, Rigid - Extremities Exam Extremities exam: Positive for: normal inspection. Negative for: pedal edema - Neurological Exam Neurological exam: Alert, Oriented x3 - Psychiatric Exam Psychiatric exam: Normal Affect, Normal Mood - Skin Skin Exam: Dry, Warm Results - Vital Signs Recent Vital Signs: Last Vital Signs Temp 98.6 F 03/21/17 07:30 Pulse 83 01/31/18 07:30 Resp 16 03/21/17 07:30 BP 112/71 03/21/17 09:33 Pulse Ox 98 03/21/17 07:30 - Labs Result Diagrams: 03/21/17 07:30 03/21/17 07:30 Labs: Laboratory Results - last 24 hr 03/20/17 03/21/17 03/21/17 22:25 07:10 07:30 WBC 5.3 D RBC 3.66 Hgb 11.7 L D Hct 34.4 L MCV 94.0 MCH 32.0 MCHC 34.0 RDW 12.5 Plt Count 298 MPV 9.8 Sodium Potassium Chloride Carbon Dioxide Anion Gap BUN Creatinine Est GFR ( Amer) Est GFR (Non-Af Amer) POC Glucose (mg/dL) 250 H 243 H Random Glucose Calcium Total Bilirubin AST ALT Alkaline Phosphatase Total Protein Albumin Globulin Albumin/Globulin Ratio 03/21/17 03/21/17 07:30 11:39 WBC RBC Hgb Hct MCV MCH MCHC RDW Plt Count MPV Sodium 137 Potassium 3.4 L Chloride 106 Carbon Dioxide 19 L Anion Gap 15 BUN 7 Creatinine 0.6 L Est GFR ( Amer) > 60 Est GFR (Non-Af Amer) > 60 POC Glucose (mg/dL) 201 H Random Glucose 263 H Calcium 8.4 Total Bilirubin 0.9 AST 22 ALT 30 Alkaline Phosphatase 91 Total Protein 7.0 Albumin 3.6 Globulin 3.4 Albumin/Globulin Ratio 1.0 L Assessment & Plan - Assessment and Plan (Free Text) Assessment: Patient is a 46yo female with PMHx significant for Crohn's disease, CAD s/p PCI with TRUMAN x2, DM, dyslipidemia, osteoarthritis who presented to the ED with abdominal pain -Acute abdominal pain -Severe constipation - differential includes chronic idiopathic constipation, IBS-C, slow transit constipation, cannot rule out stricture or malignancy -Crohn's disease, nonadherent with medical therapy - unclear if in acute flare at this time however no evidence of enterocolitis on noncontrast imaging -Abnormal CT imaging of the stomach -Prior abnormal imaging of the IC valve (03/21/2014) Plan: -PRN analgesia for abdominal pain but would avoid opiate use as possible given severe constipation -Recommend daily bowel regimen given long standing history of constipation and to improve success with bowel prep in the future if colonoscopy can be safely performed -One time dose of Dulcolax 20mg PO -Miralax 17g PO QD -Clear liquid diet with NPO past MN -Diagnostic EGD tomorrow given abnormal CT imaging of stomach with pronounced wall thickening -Patient on Plavix 75mg PO QD for CAD with recent PCI w TRUMAN in August 2016 -Prior CT with PO/IV (03/11/2014) showing 2cm hypodense lesion at the IC valve which warrants further exploration, moreso given IBD history -Will discuss with cardiology if Plavix can safely be held in the near future to perform colonoscopy -Check fecal calprotectin - Date & Time Date: 03/21/17 Time: 10:15 <Keith Doshi MD - Last Filed: 03/21/17 18:00> Meds - Medications Medications: Current Medications Clopidogrel Bisulfate (Plavix) 75 mg PO DAILY [facility] Last Admin: 03/21/17 09:29 Dose: 75 mg Fluticasone Propionate (Flonase) 1 actuation NS DAILY [facility] Last Admin: 03/21/17 15:55 Dose: Not Given Sodium Chloride (Sodium Chloride 0.45%) 1,000 mls @ 60 mls/hr IV .[id number] [facility] Last Admin: 03/21/17 13:08 Dose: 60 mls/hr Insulin Human Regular (Humulin R High) 0 units SC ACHS [facility] PRN Reason: Protocol Last Admin: 03/21/17 13:03 Dose: 4 units Ketorolac Tromethamine (Toradol) 30 mg IVP Q6 [facility] Stop: 03/24/17 09:00 Last Admin: 03/21/17 13:04 Dose: 30 mg Metoprolol Tartrate (Lopressor) 25 mg PO BID [facility] Last Admin: 03/21/17 09:33 Dose: 25 mg Morphine Sulfate (Morphine) 4 mg IV Q4H PRN PRN Reason: Pain, severe (8-10) Ondansetron HCl (Zofran Inj) 4 mg IVP Q6H PRN PRN Reason: Nausea/Vomiting Pantoprazole Sodium (Protonix Inj) 40 mg IVP DAILY [facility] Last Admin: 03/21/17 09:34 Dose: 40 mg Polyethylene Glycol (Miralax) 17 gm PO DAILY [facility] Results - Vital Signs Recent Vital Signs: Last Vital Signs Temp 98.4 F 03/21/17 16:48 Pulse 77 03/21/17 16:48 Resp 18 03/21/17 16:48 BP 108/67 03/21/17 16:48 Pulse Ox 98 03/21/17 16:48 - Labs Result Diagrams: 03/21/17 07:30 03/21/17 07:30 Labs: Laboratory Results - last 24 hr 03/20/17 03/21/17 03/21/17 22:25 07:10 07:30 WBC 5.3 D RBC 3.66 Hgb 11.7 L D Hct 34.4 L MCV 94.0 MCH 32.0 MCHC 34.0 RDW 12.5 Plt Count 298 MPV 9.8 Sodium Potassium Chloride Carbon Dioxide Anion Gap BUN Creatinine Est GFR ( Amer) Est GFR (Non-Af Amer) POC Glucose (mg/dL) 250 H 243 H Random Glucose Calcium Total Bilirubin AST ALT Alkaline Phosphatase Total Protein Albumin Globulin Albumin/Globulin Ratio 03/21/17 03/21/17 03/21/17 07:30 11:39 16:02 WBC RBC Hgb Hct MCV MCH MCHC RDW Plt Count MPV Sodium 137 Potassium 3.4 L Chloride 106 Carbon Dioxide 19 L Anion Gap 15 BUN 7 Creatinine 0.6 L Est GFR ( Amer) > 60 Est GFR (Non-Af Amer) > 60 POC Glucose (mg/dL) 201 H 199 H Random Glucose 263 H Calcium 8.4 Total Bilirubin 0.9 AST 22 ALT 30 Alkaline Phosphatase 91 Total Protein 7.0 Albumin 3.6 Globulin 3.4 Albumin/Globulin Ratio 1.0 L Attending/Attestation - Attestation I have personally seen and examined this patient.: Yes I have fully participated in the care of the patient.: Yes I have reviewed all pertinent clinical information: Yes Notes (Text): 03/21/17 17:45 Patient seen with GI fellow on rounds. This is a 46yo female with PMHx significant for Crohn's disease ?, on immunomodulator in CAD s/p PCI with TRUMAN x2 , DM, dyslipidemia, osteoarthritis who presented to the ED with abdominal pain. Ct shows stool in colon with no edema but gastric thickening. Last colonoscopy few years ago with no dysplasia biopsies. Poor outpatient follow up. Denies diarrhea or RLQ pain. Physical exam with no tenderness or guarding. Recommend daily bowel regimen given long standing history of constipation and to improve success with bowel prep in the future if colonoscopy can be safely performed. start laxatives and stool softeners. Clear liquid diet with NPO past midnight to prep for EGD in am. On plavix hence biopsies will not be taken. Prior CT with PO/IV (03/11/2014) showing 2cm hypodense lesion at the IC valve which warrants further exploration, more so given IBD history -Will discuss with cardiology if Plavix can safely be held in the near future to perform colonoscopy -Check fecal calprotectin
[2017-03-21] MEDS: Fluticasone Nasal 50 mcg/Spray NS SCH (15:55)
--- NOTE | 2017-03-22 05:33 | DS ---
HISTORY OF PRESENT ILLNESS: I saw the patient resting comfortably in bed. She did not sleep much last night. Still having some abdominal pain. She is on Flonase, insulin, Lopressor, Plavix, Protonix, IV fluids, Toradol for pain, and Zofran. She is still in lot of pain. I added some morphine. PHYSICAL EXAMINATION: VITAL SIGNS: She has 99.1 temperature, 89 pulse, 101/66 blood pressure, 17 respiratory rate, 90% O2 sat on room air. HEENT: Head is atraumatic, normocephalic. HEART: Regular rate. LUNGS: Decreased breath sounds, but clear. ABDOMEN: Soft, but there is some guarding, no rebound. EXTREMITIES: No edema. She is not eating. She is n.p.o. She has a urine which is clear. LABORATORY DATA: A 5.3 white count , 11.7 hemoglobin, 34.4 hematocrit with 298 platelets. She has 137 sodium, potassium 3.4, she got a K-rider. BUN 7, creatinine 0.6, GFR is greater than 60. Last blood sugar was 263. Calcium is 8.4, total bilirubin is 0.9, AST is 22, ALT is 30, alkaline phosphatase 91, total protein 7.0. Lipase was 90. IMPRESSION AND PLAN: I called in GI to get their opinion. I will increase her diet to clears this morning. I am hoping to discharge her later this afternoon if it is okay with GI. Await for them to come in and see what they have to say. I will continue with aggressive treatment and care. Hopefully, she will be discharged later on this afternoon. Elder Pinedo DO
[2017-03-22] MEDS: Insulin Reg-HIGH-Coverage SC SCH ×3 (07:38→16:41)
[2017-03-22 08:14] LABS: BASO # 0.01 K/mm3 (0.0-2.0); BASO % 0.2 % (0.0-3.0); EOS # 0.1 (0.0-0.7); GRAN # 2.29 (1.4-6.5); HEMOGLOBIN 12.3 g/dL (12.0-16.0); LYMPH # 2.2 (1.2-3.4); LYMPH % 45.9 % (22.0-35.0); MEAN CELL VOLUME 93.4 fl (80.0-105.0); MEAN CORPUSCULAR HEMOGLOBIN 32.5 pg (25.0-35.0); MEAN CORPUSCULAR HGB CONC 34.8 g/dl (31.0-37.0); MEAN PLATELET VOLUME 9.4 fl (7.0-11.0); MONO # 0.2 (0.1-0.6); MONO % 4.9 % (1.0-6.0); RBC 3.78 10^6/uL (3.5-6.1); RED CELL DISTRIBUTION WIDTH 12.4 % (11.5-14.5); WHITE BLOOD COUNT 4.9 10^3/ul (4.5-11.0)
[2017-03-22 08:26] LABS: BLOOD UREA NITROGEN 6 mg/dL (7-21); CALCIUM 8.6 mg/dL (8.4-10.5); GFR AFRICAN-AMERICAN > 60; GFR NON-AFRICAN AMERICAN > 60; INR 1.04 (0.93-1.08)
[2017-03-22] MEDS ORDERED: POLYETHYLENE GLYCOL 3350 17 GM/Dose PACKET PO SCH ×2 (10:00→18:00)
[2017-03-22] MEDS ORDERED: Propofol 10 mg/ml Inj (20 ML) ONE (13:53)
[2017-03-22] MEDS ORDERED: Lidocaine 1% Inj (20ml) ONE (13:53)
[2017-03-22] MEDS ORDERED: ePHEDrine 50 mg/ml Inj ONE (13:58)
[2017-03-22] MEDS ORDERED: Sodium Chloride 0.9% 1,000 ML IV SCH (14:15)
[2017-03-22] MEDS: Fluticasone Nasal 50 mcg/Spray NS SCH (16:42)
[2017-03-22 17:13] VITALS: BP 106/70
[2017-03-22 18:51] VITALS: PULSE 76; RESP 20; TEMP 99.1; O2SAT 96
--- NOTE | 2017-03-23 04:16 | DS ---
HISTORY OF PRESENT ILLNESS: She is going down for an upper endoscopy today, still having some abdominal pain. She did move her bowels. MEDICATIONS: She is on Flonase, insulin, Lopressor, MiraLax, morphine, Plavix, Protonix, IV fluids, Toradol and Zofran. PHYSICAL EXAMINATION: VITAL SIGNS: She has 98.2 temperature, 77 pulse, 114/72 blood pressure, 18 respiratory rate, 98% O2 sat on room air. HEENT: Head is atraumatic, normocephalic. HEART: Regular rate. LUNGS: Decreased breath sounds, but clear. ABDOMEN: Soft. Less guarding than yesterday, discomfort. Positive bowel sounds. EXTREMITIES: No edema. LABORATORY DATA: She has 4.9 white count, 12.3 hemoglobin, 35.3 hematocrit with 266 platelets. She has a 140 sodium, potassium 3.5, BUN 6, creatinine 0.7, GFR is greater than 60, sugar is 283, calcium is 8.6, TSH is 0.38, low. She is under stress. She is not on any Synthroid. We will keep an eye on the TSH. I am hoping we could be discharging her after the endoscopy and if she eats well and follow up on the outpatient. I have discussed with GI after the endoscopy. Increase the diet at that time. Elder Pinedo DO
== END 2017-03-22 20:30 | disposition home or self-care (01) ==
LOC: ED 14:13 → ERH 21:19 → 5RSO 23:23
PROVIDERS: ADMIT Family Medicine; ATTEND Family Medicine
DX: K29.70 Gastritis, unspecified, without bleeding (principal); E11.65 Type 2 diabetes mellitus with hyperglycemia; K50.90 Crohn's disease, unspecified, without complications; I25.10 Atherosclerotic heart disease of native coronary artery without angina pectoris; I25.2 Old myocardial infarction; I10 Essential (primary) hypertension; E78.5 Hyperlipidemia, unspecified; K59.00 Constipation, unspecified; E83.42 Hypomagnesemia; J45.909 Unspecified asthma, uncomplicated; K21.9 Gastro-esophageal reflux disease without esophagitis; M17.10 Unilateral primary osteoarthritis, unspecified knee; Z95.5 Presence of coronary angioplasty implant and graft
CPT/HCPCS: 36415; 43235; 71046; 74177; 80048; 80053; 81001; 82550; 82948; 83615; 83690; 83735; 84439; 84443; 84484; 84703; 85025; 85027; 85610; 85730; 87086; 93005; 96361; 96365; 96372; 96375; 96376; 99283; C9113; G0378; J1170; J1885; J2405; J2704; J2765; J3475; J3480; J7030; J7040; Q9967

== ENCOUNTER 2017-12-26 11:36 | Emergency (ER) | payer MEDICAID ==
[2017-12-26 11:52] VITALS: BMI 35.1
[2017-12-26 12:00] VITALS: RESP 18
--- NOTE | 2017-12-26 13:23 | ED PDOC ---
Arrival/HPI - General Chief Complaint: Upper Extremity Problem/Injury Historian: Patient - History of Present Illness Narrative History of Present Illness (Text): 12/26/17 12:23 47 year old female, with past medical history of hypertension and asthma, pre sents to the Emergency department complaining of left upper arm discomfort since an unknown period of time. Patient informs she may have banged something on to it but is unsure of the exact incident. Patient additionally informs chronic left knee pain, for which she was informed of a probable knee replacement. Patient denies any trauma or injury to the knee. Patient denies taking any medication for the pain. Patient denies any other associated complaints. Patient denies any fevers, chills, headache, dizziness, chest pain, shortness of breath, dyspnea on exertion, cough, abdominal pain, nausea, vomiting, diarrhea, back pain, neck pain, or any other complaints. PMD: Dr. Pinedo Symptom Onset: Gradual Symptom Course: Unchanged Activities at Onset: Light Context: Home Past Medical History - Provider Review Nursing Documentation Reviewed: Yes - Past History Past History: No Previous - Infectious Disease Hx of Infectious Diseases: None - Tetanus Immunization Tetanus Immunization: Unknown - Cardiac Hx MT: Yes - Pulmonary Hx Respiratory Disorders: Yes Hx Asthma: Yes Hx Bronchitis: No Hx Chronic Obstructive Pulmonary Disease (COPD): No Hx Emphysema: No Hx Pneumonia: No Hx Respiratory Aspiration: No Hx Respiratory Tract Infection: No Hx Sleep Apnea: No Hx Tuberculosis: No - Neurological Hx Neurological Disorder: No Hx Alzheimer's Disease: No HX Cerebrovascular Accident: No Hx Dementia: No Hx Dizziness: No Hx Meningitis: No Hx Migraine: No Hx Parkinson's Disease: No Hx Seizures: No Hx Transient Ischemic Attacks (TIA): No - HEENT Hx HEENT Disorder: No Hx Blind: No Hx Cataracts: No Hx Deafness: No Hx Difficulty Chewing: No Hx Epistaxis: No Hx Glaucoma: No Hx Macular Degeneration: No - Renal Hx Renal Disorder: No Hx Kidney Stones: No Hx Neurogenic Bladder: No Hx Pyelonephritis: No Hx Renal Cancer: No Hx Renal Failure: No - Endocrine/Metabolic Hx Endocrine Disorders: Yes Hx Adrenal Cancer: No Hx Diabetes Insipidus: No Hx Diabetes Mellitus Type 1: Yes Hx Diabetes Mellitus Type 2: Yes Hx Hyperthyroidism: No Hx Hypothyroidism: No Hx Systemic Lupus Erythematosus: No - Hematological/Oncological Hx Blood Disorders: No Hx AIDS: No Hx Anemia: No Hx Cancer: No Hx Chemotherapy: No Hx Cirrhosis: No Hx Hemophilia: No Hx Hepatitis A: No Hx Hepatitis B: No Hx Hepatitis C: No Hx Metastasis: No Hx Shingles: No Hx Sickle Cell Disease: No Hx Unexplained Bleeding: No - Integumentary Hx Dermatological Disorder: No Hx Basal Cell Carcinoma: No Hx Eczema: No Hx Melanoma: No Hx Psoriasis: No Hx Squamous Cell Carcinoma: No - Musculoskeletal/Rheumatological Hx Musculoskeletal Disorders: No - Gastrointestinal Hx Gastrointestinal Disorders: No (bm since beginning of february) Hx Crohn's Disease: Yes - Genitourinary/Gynecological Hx Genitourinary Disorders: No (Lmp 2 yrs ago) Other/Comment: takes depo shot - Psychiatric Hx Emotional Abuse: No Hx Physical Abuse: No Hx Substance Use: No - Past Surgical History Past Surgical History: Non-Contributing - Surgical History Hx Coronary Stent: Yes (x1) - Anesthesia Hx Anesthesia Reactions: No Hx Malignant Hyperthermia: No - Suicidal Assessment Feels Threatened In Home Enviroment: No Family/Social History - Physician Review Nursing Documentation Reviewed: Yes Family/Social History: Unknown Family HX Smoking Status: Never Smoked Hx Alcohol Use: Yes (social) Hx Substance Use: No Hx Substance Use Treatment: No Allergies/Home Meds Allergies/Adverse Reactions: Allergies whole milk Adverse Reaction (Severe, Uncoded 12/26/17 12:00) DIARRHEA drinks only canned milk. Home Medications: Home Meds Medication Instructions Recorded Confirmed Metoprolol Tartrate [Lopressor] 25 mg PO BID 09/15/16 12/26/17 Albuterol HFA [Ventolin HFA 90 90 mcg INH PRN PRN 03/13/17 12/26/17 mcg/actuation (8 g)] GlipiZIDE [Glucotrol] 10 mg PO BID 03/13/17 12/26/17 Insulin Detemir [Levemir] 60 units SQ HS 03/13/17 12/26/17 Insulin Lispro [humALOG] 40 units SQ HS 03/13/17 12/26/17 Review of Systems - Physician Review All systems were reviewed & negative as marked: Yes - Review of Systems Constitutional: absent: Fevers Respiratory: absent: SOB, Cough Cardiovascular: absent: Chest Pain Gastrointestinal: absent: Abdominal Pain, Diarrhea, Nausea, Vomiting Musculoskeletal: Other (left upper extremity swelling). absent: Back Pain, Neck Pain Neurological: absent: Headache, Dizziness Psychiatric: absent: Anxiety, Depression Physical Exam Vital Signs Reviewed: Yes Vital Signs Temp Pulse Resp BP Pulse Ox 12/26/17 11:51 98.6 F 86 18 127/84 97 Temperature: Afebrile Blood Pressure: Normal Pulse: Regular Respiratory Rate: Normal Appearance: Positive for: Well-Appearing, Non-Toxic, Comfortable Pain Distress: None Mental Status: Positive for: Alert and Oriented X 3 - Systems Exam Head: Present: Atraumatic, Normocephalic Pupils: Present: PERRL Extroacular Muscles: Present: EOMI Conjunctiva: Present: Normal Mouth: Present: Moist Mucous Membranes Neck: Present: Normal Range of Motion Respiratory/Chest: Present: Clear to Auscultation, Good Air Exchange. No: Respiratory Distress, Accessory Muscle Use Cardiovascular: Present: Regular Rate and Rhythm, Normal S1, S2. No: Murmurs Abdomen: No: Tenderness, Distention, Peritoneal Signs Back: Present: Normal Inspection Upper Extremity: Present: Edema (Minimal swelling to left upper extremity). No: Cyanosis Lower Extremity: Present: Normal Inspection. No: Edema Neurological: Present: GCS=15, CN II-XII Intact, Speech Normal Skin: Present: Warm, Dry, Normal Color. No: Rashes Psychiatric: Present: Alert, Oriented x 3, Normal Insight, Normal Concentration Medical Decision Making ED Course and Treatment: 12/26/17 12:23 Impression: 47 year old female presents to the Emergency department complaining of left upper extremity swelling. Plan: -- US of Left Upper Extremity -- Reassess and disposition Prior Visits: Notes and results from previous visits were reviewed. Progress Notes: 12/26/17 12:50 US of Left Upper Extremity is negative for DVT. 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 All medical record entries made by the Scribe were at my direction and personally dictated by me. I have reviewed the chart and agree that the record accurately reflects my personal performance of the history, physical exam, medical decision making, and the department course for this patient. I have also personally directed, reviewed, and agree with the discharge instructions and disposition. Disposition/Present on Arrival - Present on Arrival Any Indicators Present on Arrival: No History of DVT/PE: No History of Uncontrolled Diabetes: No Urinary Catheter: No History of Decub. Ulcer: No History Surgical Site Infection Following: None - Disposition Have Diagnosis and Disposition been Completed?: Yes Diagnosis: Left arm swelling Disposition: HOME/ ROUTINE Disposition Time: 13:10 Condition: GOOD Discharge Instructions (ExitCare): Cellulitis (Skin Infection), Adult (DC) Additional Instructions: FERNANDO CARTER, thank you for letting us take care of you today. The emergency medical care you received today was directed at your acute symptoms. If you were prescribed any medication, please fill it and take as directed. It may take several days for your symptoms to resolve. Return to the Emergency Department if your symptoms worsen, do not improve, or if you have any other problems. Please contact your doctor or call one of the physicians/clinics you have been referred to that are listed on the Patient Visit Information form that is included in your discharge packet. Bring any paperwork you were given at discharge with you along with any medications you are taking to your follow up visit. Our treatment cannot replace ongoing medical care by a primary care provider outside of the emergency department. Thank you for allowing the [facility] team to be part of your care today. Follow up with your primary care doctor in 3-4 days for re-evaluation and further management. Prescriptions: Cephalexin [cephalexin] 500 mg PO TID #15 cap Ibuprofen [Motrin] 600 mg PO Q6 PRN #20 tab PRN Reason: Pain, Moderate (4-7) Referrals: Elder Pinedo DO [Family Provider] - Follow up with primary Forms: [employer] (Citizen [place])
[2017-12-26 14:04] VITALS: BP 139/79; PULSE 87; TEMP 98.4; O2SAT 100
--- NOTE | 2017-12-26 15:33 | US ---
PROCEDURE: Left upper extremity venous ultrasound HISTORY: Arm pain and swelling. Evaluate for deep venous thrombosis. PHYSICIAN(S): Kahlil Woods MD. FINDINGS: The visualized leftinternal jugular vein is sonographically normal and compressible. No evidence of obstruction or thrombus is seen. The visualized segments of the left subclavian vein are patent with normal waveforms. No sonographic evidence of obstruction or thrombosis is seen. The visualized deep venous system of the proximal leftupper extremity is sonographically normal and compressible. IMPRESSION: 1. No sonographic evidence for deep venous thrombosis in the visualized segments of the left upper extremity.
== END 2017-12-26 13:35 | disposition home or self-care (01) ==
LOC: ED 11:36
DX: M79.89 Other specified soft tissue disorders (principal); I25.2 Old myocardial infarction; I10 Essential (primary) hypertension

== ENCOUNTER 2018-03-22 19:17 | Emergency (ER) | payer MEDICAID ==
[2018-03-22 19:17] VITALS: BMI 35.1
[2018-03-22 20:01] VITALS: RESP 18; O2SAT 100
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
[2018-03-22 22:43] VITALS: BP 148/80; PULSE 92; TEMP 97.9
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
== END 2018-03-22 20:49 | disposition home or self-care (01) ==
LOC: ED 19:17
DX: S02.2XXA Fracture of nasal bones, initial encounter for closed fracture (principal); Y04.0XXA Assault by unarmed brawl or fight, initial encounter; E11.9 Type 2 diabetes mellitus without complications; I10 Essential (primary) hypertension; J45.909 Unspecified asthma, uncomplicated

== ENCOUNTER 2018-04-18 14:34 | Outpatient (CLI) | payer MEDICAID | END 2018-04-18 14:35 | disposition home or self-care (01) | LOC: RAD 14:35 | DX: M25.462 Effusion, left knee (principal) ==

== ENCOUNTER 2018-06-07 17:00 | Emergency (ER) | payer SELFPAY ==
[2018-06-07 17:04] VITALS: BMI 31.6
[2018-06-07 17:18] VITALS: BP 128/80; PULSE 94; RESP 18; TEMP 98.3; O2SAT 96
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
== END 2018-06-07 18:33 | disposition home or self-care (01) ==
LOC: ED 17:00
DX: J32.9 Chronic sinusitis, unspecified (principal); I10 Essential (primary) hypertension; E11.9 Type 2 diabetes mellitus without complications

== ENCOUNTER 2018-06-12 12:27 | Outpatient (CLI) | payer MEDICAID | END 2018-06-12 12:28 | disposition home or self-care (01) | LOC: RAD 12:27 ==